=== PATIENT | female | born 1955 | race Caucasian/White ===

== ENCOUNTER 2016-09-07 22:27 | Inpatient (IN) | payer MEDICAID, MEDICARE ==
[~2016-09-07] VITALS: Ht 157.5 cm; Wt 102.6 kg
[~2016-09-07 22:27] MED LIST: CARV12.52 PO; CARV6.252 PO; CIPR-231 PO; CLIN-78 PO; CLOP75TA28 PO; FURO40TA4 PO; INSLIS SUBQ; NPH,100V11 SUBQ; ONDA4TAB6 PO; POTA10TA14 PO; SERT100T9 PO; SIMV40TA5 PO; TOPI50TA32 PO
[2016-09-07 23:30] VITALS: BP 146/83; PULSE 104; RESP 16; O2SAT 99
[2016-09-08] VITALS (8 sets, daily range): BP systolic 117–160; BP diastolic 59–93; PULSE 72–110; RESP 18–20; O2SAT 93–97
--- NOTE | 2016-09-08 01:29 | ED.REPORT ---
HPI-Extremity Problem Lower Date of Service Sep 08, 2016 ED Provider: Tory Dillard MD Patient is a 61 year old female with a history of diabetes mellitus with peripheral neuropathy, congestive heart failure, coronary artery disease, fibromyalgia, hypertension, and prior CVA who presents to the ED complaining of left foot swelling and pain that began 3-4 days ago. Patient states that the pain in her foot has increased in severity since onset and now radiates up her entire leg. She has also noticed that her foot is red. The patient is concerned that she has a fracture or infection in her foot. Patient reports that the pain of her foot causes her foot to buckle under her and is unable to bear weight on her foot. Patient denies any recent trauma or injury to her foot. Patient reports that any exertion also makes her short of breath. She also reports that her blood sugars have been uncontrollably high. Patient admits to associated chills and a fever of 102F at home, but she is afebrile in the ED. She reports left arm pain but denies chest pain. Nursing Notes Stated Complaint: SWOLLEN FOOT/ANKLE Chief Complaint: Extremity Trauma Nursing Notes Reviewed: Yes Allergies: Coded Allergies: codeine (Verified Allergy, Severe, 12/19/14) Penicillins (Verified Allergy, Mild, 12/19/14) BUT TOLERATES AMOX (ACCORDING TO CHART) hydrocodone bitartrate (Verified Allergy, Mild, 12/19/14) hydromorphone (Verified Allergy, Mild, 12/19/14) oxycodone (Verified Allergy, Mild, 12/19/14) Sulfa (Sulfonamide Antibiotics) (Verified Allergy, Unknown, 12/19/14) gabapentin (Verified Adverse Reaction, Intermediate, Nausea,Vomiting, 12/19) Scheduled Carvedilol (Carvedilol) 6.25 Mg Tablet 6.25 MG PO QAM Carvedilol (Carvedilol) 12.5 Mg Tablet 12.5 MG PO QPM Ciprofloxacin (Cipro) 500 Mg Tablet 500 MG PO BID Clindamycin (Clindamycin) 300 Mg Capsule 300 MG PO Q8H Clopidogrel (Clopidogrel) 75 Mg Tablet 75 MG PO DAILY Furosemide (Furosemide) 40 Mg Tablet 80 MG PO QAM Furosemide (Furosemide) 40 Mg Tablet 40 MG PO QPM Insulin Human Lispro (HumaLOG U100 Insulin Vial) 100 Unit/Ml Unit 1 UNIT SUBQ ACHS Check blood sugars before meals and at bedtime. Use correction factor only before meals. Blood Sugar Lispro Correction: <151, 0 units; 151-175, 1 unit; 176-200, 2 units; 201-225, 3 units; 226-250, 4 units; 251-275, 5 units; 276-300 , 6 units; 301-325, 7 units; 326-350, 8 units; 351-375, 9 units; 376-400, 10 units; >400, 12 units. NPH, Human Insulin Isophane (HUMulin-N U100 Insulin Vial) 100 Unit/1 Ml Vial 30 UNIT SUBQ BID Potassium Chloride ER (Klor-Con M10) 10 Meq Tablet 20 MEQ PO BID Sertraline HCl (Sertraline) 100 Mg Tablet 100 MG PO DAILY Simvastatin (Simvastatin) 40 Mg Tablet 40 MG PO HS Topiramate (Topamax) 50 Mg Tablet 50 MG PO BID Scheduled PRN Ondansetron (Zofran) 4 Mg Tablet 4 MG PO Q4H PRN PRN For Nausea General Time Seen by MD: 01:27 Chief Complaint Foot injury left Hx Obtained From: Patient Arrived By: Wheelchair Onset Occurred: 4 days ago Symptom Duration: Since onset Location: : Foot left Quality: Painful Severity: Current: Severe Severity: Maximum: Severe Recent Healthcare: No recent doctor visit, No recent hospitalization Similar Sx Previous: No Past Medical History Past Medical History 1. Diabetes mellitus type 2, insulin using a. Diabetic neuropathy and retinopathy. b. Peripheral neuropathy. c. Suspected nephropathy. 2. Congestive heart failure, systolic dysfunction with most recently echocardiogram showing reduced EF of about 40% to 45% with mild global hypokinesis of left ventricle, severe hypokinesis of the inferior wall, right ventricle being normal in size and function. 3. History of previous CVA in November 24 which showed subacute lacunar infarct of the left caudate body in the left camejo radiata. 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 She has carotids which showed less than 50% bilateral stenosis of the internal carotids. 4. Depression. 5. Gout. 6. Hyperlipidemia. 7. Hypertension. 8. Sleep apnea. Patient now wearing CPAP at night. 9. Obesity. 10. History of osteoarthritis. 11. Fibromyalgia Neuropathy Past Surgical History 1. Total abdominal hysterectomy and bilateral salpingo-oophorectomy. 2. Cholecystectomy. 3. Heart catheterization procedure. 4. Tonsillectomy. 5. Left thumb debridement due to Staph infection. Smoking History Never Smoker Social History Other Social History: Good social support, Local resident Ambulatory Status Independent Review of Systems Constitutional: Reports: Chills, Fever Musculoskeletal: Reports: Extremity pain, Extremity swelling Complete sys rev & neg: except as marked. Respiratory: Reports: Dyspnea on exertion, Shortness of breath Cardiovascular: Denies: Chest pain Physical Exam Initial Vital Signs Vital Signs (First) Date Time Temp Pulse Resp B/P Pulse Ox O2 Delivery O2 Flow Rate FiO2 09/07/16 23:30 36.8 104 16 146/83 99 Room Air Initial VS: Reviewed Head / Eyes: Atraumatic, Normocephalic, PERRL ENT: Conjunctiva normal, No scleral icterus Neck: Supple, Full range of motion Psychiatric: Mood/affect normal, Behavior normal, Normal thought content Lower Extremity / Pelvis / MS: No deformity Left Leg / Calf: Positive: L calf > R calf, Swelling present... Ankle / Foot: No deformity Left ankle/foot: Very slight erythema and 1+ edema of the foot. Foot is tender to touch. No crepitus. Decreased ROM of the ankle secondary to pain. Good pulse. General/Constitutional: Awake, Alert Appearance / Presentation: Positive: Ill appearing/not toxic (chronically), Obese, morbidly Respiratory / Chest: Breath sounds NL, Breath sounds = bilat, No respiratory distress, No rales, No rhonchi, No wheezing Cardiovascular: Regular rhythm, Heart sounds NL, No murmurs Heart Rate / Rhythm: Positive: Tachycardia Skin: Warm, Dry Neurologic: Oriented X3, Speech NL, No motor deficits, No sensory deficits Interpretation & Diagnostics Lab Results Interpretation Result Diagram: 09/08/16 0125 09/08/16 0125 Test 09/08/16 01:25 White Blood Count 13.9th/mm3 (3.8-10.1) Red Blood Count 4.84mil/mm3 (3.90-5.20) Hemoglobin 12.8g/dL (12.0-15.6) Hematocrit 40.6% (35.0-46.0) Mean Corpuscular Volume 83.9fL (81-100) Mean Corpuscular Hemoglobin 26.4pg (27.0-35.0) Mean Corpuscular Hemoglobin Concent 31.5% (32.0-37.0) Red Cell Distribution Width 16.2% (12.3-15.4) Platelet Count 223bil/L (150-400) Neutrophils (%) (Auto) 77.8% (40-74) Lymphocytes (%) (Auto) 13.0% (14-46) Monocytes (%) (Auto) 7.9% (4-12) Eosinophils (%) (Auto) 0.9% (0-5) Basophils (%) (Auto) 0.2% (0-3) Prothrombin Time 12.8sec (8.1-12.5) Prothromb Time International Ratio 1.19ratio D-Dimer 0.6mg/L (<0.50) Sodium Level 142mEq/L (134-144) Potassium Level 4.2mEq/L (3.5-5.2) Chloride Level 103mEq/L (97-108) Carbon Dioxide Level 24mmol/L (18-29) Blood Urea Nitrogen 32mg/dL (8-27) Creatinine 0.96mg/dL (0.57-1.00) Estimat Glomerular Filtration Rate 85mL/min (>59) Glucose Level 166mg/dL (60-99) Lactic Acid Level 1.3mmol/L (0.4-2.0) Calcium Level 9.2mg/dL (8.5-10.1) Magnesium Level 1.7mg/dL (1.6-2.6) Total Bilirubin 0.6mg/dL (0.0-1.2) Aspartate Amino Transf (AST/SGOT) 17U/L (0-50) Alanine Aminotransferase (ALT/SGPT) 14U/L (0-32) Alkaline Phosphatase 68U/L (25-165) Troponin T 0.013ug/L (0.0-0.011) Pro-B-Type Natriuretic Peptide 934.7pg/mL (0-287) Total Protein 7.6g/dL (6.4-8.4) Albumin 3.8g/dL (3.4-5.0) Hold Mendes Top Tube Received (Received) ECG Interpretation ECG Interpretation: Sinus tachycardia, Rate [address] elevations. Low voltage. Diffuse flattening of T waves, unchanged from prior. Time: 02:47 Interpreted by: ED physician Normal ECG Interpretation: No change from prior ECGs X-Ray Chest Interpretation Chest Xray Interpretation: Impression: Cardiomegaly. No acute cardiopulmonary process. View: Portable Interpretation / Wet Read by: Wet read ED physician X-Ray Interpretation Xray Interpretation: Impression: No acute abnormalities. X-Ray Ordered: Foot left Interpretation / Wet Read by: Wet read ED physician Re-Eval/Medical Decision Med Decision/Clinical Course 61-year-old female with extensive past medical history here with shortness of breath and redness, pain, swelling to her left lower extremity. Differential diagnosis includes but is not limited to cellulitis versus DVT versus PE versus CHF exacerbation. BNP is very mildly elevated, along with very mildly elevated troponin, which does not appear to be her baseline. EKG did not show ST elevation [place]. Patient was given aspirin in the emergency department, along with therapeutic Lovenox. CTA PE study is still pending at time of admission. Hospitalist is aware of need for follow-up of CTA. CMP is otherwise unremarkable. CBC shows leukocytosis. Likely secondary to her cellulitis. Patient has been given clindamycin as she is allergic to penicillins. Blood cultures have been drawn. She is aware and amenable to admission at this time. I offered her pain medications, however, given all of her allergies, she declined. Source of Hx: Old records Re-Evaluation/Progress #1: Time of Eval: 02:31 Patient Status: Condition improved Re-Evaluation/Progress Note: Patient was informed that she will be admitted to the hospital for further care. Patient understands and agrees with this plan. Patient has an allergy to opiates. The patient does not remeber what this reaction is. Re-Evaluation/Progress #2: Time of Eval: 02:39 Re-Evaluation/Progress Note: Patient was informed that she has a mildly elevated troponin. This in combination with a mildly elevated d-dimer indicated a CT Angio of her chest. Consultation : Referral / Consult Name: Leeanna Horvath MD Consulted With: Hospitalist Call Returned at: 02:32 Nurse Case Manager: Will see patient, Agrees with eval, Agrees with plan, Accepts admit Note: Spoke with Dr Horvath, hospitalist, who agrees to accept admit. Counseled Regarding: Diagnosis, Lab results, Need for admission Discharge & Departure Impression: Primary Impression: Cellulitis of left foot Additional Impression: Elevated troponin Disposition: ADMITTED TO HOSPITAL Discharge Condition All VS Reviewed: Yes Condition: Stable Referrals: Harris Landin MD (PCP) [place] Attestation Portions of this note were transcribed by Leona Blanca. I, Dr. Dillard personally performed the history, physical exam and medical decision-making; I reviewed and confirmed the accuracy of the information in the transcribed note. Signed by: Arvind Guerra, 09/08/2016 0247 copies to: Harris Landin MD, Rebecca A MD Sep 08, 2016 01:28 Leona Blanca Sep 08, 2016 01:38
[2016-09-08 01:46] LABS: BASOPHILS % (AUTO) 0.2 % (0-3); EOSINOPHILS % (AUTO) 0.9 % (0-5); MONOCYTES % (AUTO) 7.9 % (4-12); Mean Corpuscular Hemoglobin 26.4 pg (27.0-35.0); Mean Corpuscular Volume 83.9 fL (81-100); NEUTROPHILS % (AUTO) 77.8 % (40-74); Platelet Count 223 bil/L (150-400)
[2016-09-08 02:31] LABS: Magnesium 1.7 mg/dL (1.6-2.6); TROPONIN T 0.013 ug/L (0.0-0.011)
[2016-09-08 02:49] LABS: INR 1.19 ratio
[2016-09-08] MEDS ORDERED: Ondansetron 2 mg/mL 2 mL Inj IVPUSH PRN ×2 (03:20→03:30)
[2016-09-08] MEDS ORDERED: Heparin 5,000 Unit/mL Inj SUBQ SCH (03:20)
[2016-09-08] MEDS ORDERED: Polyethylene Glycol (PEG) 17 Gm Powder PO PRN (03:20)
[2016-09-08] MEDS ORDERED: Alum-Mag Hydrox-Simeth 30 mL Suspension PO PRN ×2 (03:20→03:30)
[2016-09-08] MEDS ORDERED: Clindamycin Inj 900 MG in IV Premix 1 EACH IV ONE (03:35)
[2016-09-08] MEDS ORDERED: Vancomycin Inj 2,000 MG in 0.9% Sodium Chloride 500 ML IV ONE (04:00)
[2016-09-08] MEDS: Clindamycin Inj 600 MG in IV Premix 1 EACH IV SCH ×3 (04:57→20:40)
[2016-09-08] MEDS: Nystatin 100,000 Unit/Gm 15 Gm Powder TOPICAL SCH ×3 (04:57→20:40)
[2016-09-08 05:56] LABS: APPEARANCE,URINE HAZY (CLEAR,HAZY); COLOR,URINE YELLOW (YELLOW); OCCULT BLOOD,URINE SMALL (NEGATIVE); PH,URINE 5.5 (5.0-8.0)
--- NOTE | 2016-09-08 06:26 | PCM.CONPHA ---
Subjective Date of Service: Sep 08, 2016 Requesting Provider: Minesh Kim DO Reason for Pharmacy Consult: Vancomycin Dosing Objective Vital Signs Date Time Temp Pulse Resp B/P Pulse Ox O2 Delivery O2 Flow Rate FiO2 09/08/16 06:18 103 09/08/16 04:00 36.7 110 20 160/93 97 Room Air 09/08/16 03:35 37.2 105 20 147/59 95 Room Air 09/07/16 23:30 36.8 104 16 146/83 99 Room Air Weight (Kilograms): 104.000 Height (Feet): 5 Height (Inches): 2.00 Test 09/08/16 01:25 09/08/16 04:53 White Blood Count 13.9th/mm3 (3.8-10.1) Red Blood Count 4.84mil/mm3 (3.90-5.20) Hemoglobin 12.8g/dL (12.0-15.6) Hematocrit 40.6% (35.0-46.0) Mean Corpuscular Volume 83.9fL (81-100) Mean Corpuscular Hemoglobin 26.4pg (27.0-35.0) Mean Corpuscular Hemoglobin Concent 31.5% (32.0-37.0) Red Cell Distribution Width 16.2% (12.3-15.4) Platelet Count 223bil/L (150-400) Neutrophils (%) (Auto) 77.8% (40-74) Lymphocytes (%) (Auto) 13.0% (14-46) Monocytes (%) (Auto) 7.9% (4-12) Eosinophils (%) (Auto) 0.9% (0-5) Basophils (%) (Auto) 0.2% (0-3) Prothrombin Time 12.8sec (8.1-12.5) Prothromb Time International Ratio 1.19ratio D-Dimer 0.6mg/L (<0.50) Sodium Level 142mEq/L (134-144) Potassium Level 4.2mEq/L (3.5-5.2) Chloride Level 103mEq/L (97-108) Carbon Dioxide Level 24mmol/L (18-29) Blood Urea Nitrogen 32mg/dL (8-27) Creatinine 0.96mg/dL (0.57-1.00) Estimat Glomerular Filtration Rate 85mL/min (>59) Glucose Level 166mg/dL (60-99) Lactic Acid Level 1.3mmol/L (0.4-2.0) Calcium Level 9.2mg/dL (8.5-10.1) Magnesium Level 1.7mg/dL (1.6-2.6) Total Bilirubin 0.6mg/dL (0.0-1.2) Aspartate Amino Transf (AST/SGOT) 17U/L (0-50) Alanine Aminotransferase (ALT/SGPT) 14U/L (0-32) Alkaline Phosphatase 68U/L (25-165) Troponin T 0.013ug/L (0.0-0.011) Pro-B-Type Natriuretic Peptide 934.7pg/mL (0-287) Total Protein 7.6g/dL (6.4-8.4) Albumin 3.8g/dL (3.4-5.0) Hold Mendes Top Tube Received (Received) Urine Color Yellow (YELLOW) Urine Appearance Hazy (CLEAR,HAZY) Urine pH 5.5 (5.0-8.0) Urine Specific [place] 1.015 (1.003-1.035) Urine Protein 100mg/dL (NEG,TRACE) Urine Glucose (UA) Negativemg/dL (NEGATIVE) Urine Ketones Negativemg/dL (NEGATIVE) Urine Occult Blood Small (NEGATIVE) Urine Nitrite Negative (NEGATIVE) Urine Bilirubin Negative (NEGATIVE) Urine Urobilinogen 1.0mg/dL (NORMAL) Urine Leukocyte Esterase Trace (NEGATIVE) Urine RBC 0-2/hpf (0-2) Urine WBC 6-10/hpf (0-5) Urine Epithelial Cells Few/hpf (NONE-MOD) Urine Crystals None seen (NONE SEEN) Urine Bacteria Few/hpf (NONE-FEW) Urine Hyaline Casts None/lpf (NONE) Urine Granular Casts None seen (NONE SEEN) Urine Waxy Casts None seen (NONE SEEN) Urine Red Blood Cell Casts None seen (NONE SEEN) Urine White Blood Cell Casts None seen (NONE SEEN) Urine Mucus None seen (None Seen) Urine Trichomonas None seen (NONE SEEN) Urine Yeast None (NONE SEEN) Urinalysis Comment None Urine Culture Reflexed Indicated Assessment/Plan Assessment/Plan A: * Vancomycin dosing by pharmacy for 61 y/o diabetic woman * She is also being started on clindamycin * Estimated CrCl 71 mL/min (Cockcroft & Gault using AdjBW) * Estimated vancomycin half-life is 11 hours and estimated Vd is 73 liters P: * Give one 2000 mg vancomycin IV loading dose * Continue with vancomycin 1250 mg every 12 hours * Target trough range of 15 - 20 mcg/mL for now * Drawing a trough level prior to the fourth dose Thank you. Pharmacy will continue to follow this patient. Vivian Alvarado, PharmD Vivian Alvarado Sep 08, 2016 06:26
--- NOTE | 2016-09-08 06:27 | NUR ---
Admit Admitted to 1028 from ED. Unable to ambulate on arrival r/t left foot pain with activity. Right AC IV SL. IV ABO initiated after blood cultures and UA obtained. RA without c/o SOB. Tele SR/ST HR 90-110s without c/o CP. Tolerating PO intake without difficulty but reports poor appetite at baseline. Toileting per bedpan at this time per patient request. Denies issues with toileting with exception to three episodes of diarrhea prior to admit. c/o left foot pain. Prn ibuprofen administered and effective at this time. Personal belongings at bedside per patient request. Unable to recall home medications and did not bring in home medication list. Oriented to call light use with return demonstration and using for needs.
[2016-09-08] MEDS ORDERED: Glucose 40% Oral Gel 15 Gm Tube PO PRN (06:35)
--- NOTE | 2016-09-08 06:40 | PCM.HPMED ---
Subjective Date of Service Sep 08, 2016 Primary Provider: Admitting Physician: Leeanna Horvath MD Primary Care Physician: Harris Landin MD Attending Physician: Leeanna Horvath MD Chief Complaint: Foot pain History of Present Illness: Patient is a pleasant 61-year-old woman history of DM type II peripheral neuropathy, insulin using, congestive heart failure, coronary artery disease, fibromyalgia, hypertension, and history of stroke presented to the emergency department complaining of left foot swelling and pain that began about 3-1/2 days ago. She states the pain in her foot increased in severity since onset now radiates up her entire left leg, she is also noticing that her foot is red. Additionally she says that her right foot is also beginning to cause her some pain as well. She had this previously which required hospitalization with IV antibiotics. She was concerned that she had fractured her foot or that it was once again infected. She states she is unable to bear weight on her foot and subsequently unable to walk. She denies any recent trauma or injury to her foot. The pain occasionally radiates up her leg into her back, and also describes left upper extremity pain into her shoulder and believes it all to be connected. She rates the pain 10 out of 10 and says she does not believe the pain can be any worse than it is now met is the worst pain in her entire life and could cause her to pass out. She describes the pain as throbbing and stinging. Additionally patient conveys that she has begun to notice increasing dyspnea on exertion, and her blood sugars have been uncontrollably high since the pain in her foot has started. She reports that she has had a fever at home of 100.2 the last couple of nights, associated with chills, no cold sweats, but remained afebrile in the emergency department. She has had lightheadedness and dizziness for the last month, worsening in the last couple of days, and states this is one of the reasons she decided to come to the ER was because of the worsening lightheadedness dizziness, now with worsening left lower extremity pain, pain on the right foot, inability to maintain adequate blood sugar, and concern for kidney infection given the back pain. She also endorses polyuria, polydipsia, a single watery diarrhea since being in the emergency department, In the emergency department she was found to have heart rate of 104, blood pressure 146/83, respiratory rate of 16, temperature 36.8, and O2 saturation 99 % on room air. White blood cell count of 13.9, 77.8% neutrophils, hemoglobin 12.8, platelets 223. Electrolytes were within normal limits, BUN was 32, creatinine 0.96, blood glucose was 166, liver enzymes were normal, magnesium 1.7, lactic acid 1.3, BNP 937, troponin was 0.013 PT 12.8, INR 1.19, d-dimer 0.6. EKG: Heart rate 105, sinus tachycardia, QTC 472, no signs of acute ischemia or infarction, beginning of left axis deviation. Due to the shortness of breath, and elevated d-dimer, patient received chest angio-pulmonary embolism series This is read as negative for pulmonary embolism. Chest x-ray is interpreted as having cardiomegaly, no acute cardiopulmonary process as read by the emergency room physician. Left foot and ankle was read by the emergency room physician as having no acute abnormalities. Review of Systems: Comprehensive ROS is negative unless specified in history of present illness Allergies Coded Allergies: codeine (Verified Allergy, Severe, 12/19/14) Penicillins (Verified Allergy, Mild, 12/19/14) BUT TOLERATES AMOX (ACCORDING TO CHART) hydrocodone bitartrate (Verified Allergy, Mild, 12/19/14) hydromorphone (Verified Allergy, Mild, 12/19/14) oxycodone (Verified Allergy, Mild, 12/19/14) Sulfa (Sulfonamide Antibiotics) (Verified Allergy, Unknown, 12/19/14) gabapentin (Verified Adverse Reaction, Intermediate, Nausea,Vomiting, 12/19) Home Medications Scheduled Carvedilol (Carvedilol) 6.25 Mg Tablet 6.25 MG PO QAM Carvedilol (Carvedilol) 12.5 Mg Tablet 12.5 MG PO QPM Ciprofloxacin (Cipro) 500 Mg Tablet 500 MG PO BID Clindamycin (Clindamycin) 300 Mg Capsule 300 MG PO Q8H Clopidogrel (Clopidogrel) 75 Mg Tablet 75 MG PO DAILY Furosemide (Furosemide) 40 Mg Tablet 80 MG PO QAM Furosemide (Furosemide) 40 Mg Tablet 40 MG PO QPM Insulin Human Lispro (HumaLOG U100 Insulin Vial) 100 Unit/Ml Unit 1 UNIT SUBQ ACHS Check blood sugars before meals and at bedtime. Use correction factor only before meals. Blood Sugar Lispro Correction: <151, 0 units; 151-175, 1 unit; 176-200, 2 units; 201-225, 3 units; 226-250, 4 units; 251-275, 5 units; 276-300 , 6 units; 301-325, 7 units; 326-350, 8 units; 351-375, 9 units; 376-400, 10 units; >400, 12 units. NPH, Human Insulin Isophane (HUMulin-N U100 Insulin Vial) 100 Unit/1 Ml Vial 30 UNIT SUBQ BID Potassium Chloride ER (Klor-Con M10) 10 Meq Tablet 20 MEQ PO BID Sertraline HCl (Sertraline) 100 Mg Tablet 100 MG PO DAILY Simvastatin (Simvastatin) 40 Mg Tablet 40 MG PO HS Topiramate (Topamax) 50 Mg Tablet 50 MG PO BID Scheduled PRN Ondansetron (Zofran) 4 Mg Tablet 4 MG PO Q4H PRN PRN For Nausea PMH Past Medical History Past Medical History 1. Diabetes mellitus type 2, insulin using a. Diabetic neuropathy and retinopathy. b. Peripheral neuropathy. c. Suspected nephropathy. 2. Congestive heart failure, systolic dysfunction with most recently echocardiogram showing reduced EF of about 40% to 45% with mild global hypokinesis of left ventricle, severe hypokinesis of the inferior wall, right ventricle being normal in size and function. 3. History of previous CVA in November 24 which showed subacute lacunar infarct of the left caudate body in the left camejo radiata. 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 She has carotids which showed less than 50% bilateral stenosis of the internal carotids. 4. Depression. 5. Gout. 6. Hyperlipidemia. 7. Hypertension. 8. Sleep apnea. Patient now wearing CPAP at night. 9. Obesity. 10. History of osteoarthritis. 11. Fibromyalgia Neuropathy Surgical History 1. Total abdominal hysterectomy and bilateral salpingo-oophorectomy. 2. Cholecystectomy. 3. Heart catheterization procedure. 4. Tonsillectomy. 5. Left thumb debridement due to Staph infection. Family History Mother has COPD requiring oxygen Father " from natural causes" Daughter "has a kidney problem" Social History Hx Alcohol Use: No Hx Substance Use: No Hx Tobacco Use: No Smoking Status: Never Smoker Living Arrangement: with Family Exam Vital Signs Vital Sign - Last Date Time Temp Pulse Resp B/P Pulse Ox O2 Delivery O2 Flow Rate FiO2 09/08/16 03:35 37.2 105 20 147/59 95 Room Air Exam General: Laying in bed, in mild distress HEENT: Normocephalic, atraumatic, EOMI grossly, mucous membranes dry, hirsute chin, rather large fullness of the anterior neck, foul-smelling breath Cardiovascular: Regular rate and rhythm, heart sounds were distant and difficult to appreciate, unable to specify murmur, clicks, or rubs. Pulmonary: Clear to auscultation bilaterally, no W/R/R. Abdominal: Obese. there is firmness adjacent to the umbilicus about avocado size subcutaneous tissue, nontender, there is a full-length midline sagittal surgical scar, there is moist red/pink foul-smelling rash at the abdominal folds along the inguinal ligaments. Extremities/skin: Left lower extremity as faint redness to the foot and ankle, it is exquisitely tender to any manipulation, unable to appreciate any crepitus , fluctuance, cords, or ulcers. Leg is tender all the way to the knee. Right lower extremity is similar, however not as tender, swollen, or red/pink. The soles of both feet are crusted with black dirt. Unable to appreciate any breaks in skin. Neuro: Neurologically grossly intact, strength is equal bilaterally upper and lower extremities. Strength of lower extremities is limited by pain. MSK: Upper extremity strength is 5 out of 5 in all 6 planes, lower extremity strength is 3 out of 5, unable to be evaluated against resistance due to pain. Lab and Diagnostics Result Diagram: 09/08/16 0125 09/08/16 0125 Microbiology Blood cultures and urine pending. X-Rays, CTs and MRIs X-Ray Chest Interpretation Chest Xray Interpretation: Impression: Cardiomegaly. No acute cardiopulmonary process. View: Portable Interpretation / Wet Read by: Wet read ED physician X-Ray Interpretation Xray Interpretation: Impression: No acute abnormalities. X-Ray Ordered: Foot left Interpretation / Wet Read by: Wet read ED physician Night read of chest angiogram was negative for pulmonary embolism 12-lead ECG Please see history of present illness Assessment & Plan 61-year-old woman with history of diabetes mellitus, insulin using, peripheral neuropathy, congestive heart failure, coronary artery disease, at least one CVA , and history of cellulitis in her feet requiring IV antibiotics presented with similar pain before that required antibiotics. Presentation is concerning for cellulitis versus DVT, and history of shortness of breath and elevated d-dimer raise suspicion for pulmonary embolism. #1 Acute Sepsis, present on admission, treatment initiated Heart rate 104, white blood cell count 13.9 with left shift, with source of left lower extremity cellulitis, and possible urinary tract infection. Lactic acid 1.3 Patient's blood pressure is stable, however remains tachycardic. IV normal saline to tachycardia subsides. Antibiotics as below #2 Acute BL lower extremity pain, L>R , present on admission, evaluation and treatment ongoing -Elevated d-dimer, swelling, redness consistent with DVT, history of cellulitis requiring IV antibiotics with similar presentation, at this point pain can be attributed to either as both are likely. -Bilateral duplex venous ultrasound to be performed morning. IV antibiotics clindamycin 600 mg 3 times a day and vancomycin dosed per pharmacy CRP pending LRINEC score is pending CRP - (if crp is >150 score will be 6, otherwise only 2) Lovenox dosed pharmacy #3 acutely Elevated troponin, present on admission, evaluation ongoing to rule out NSTEMI. Troponin mildly elevated at 0.013, this is elevated from baseline on previous records, EKG did not demonstrate any acute changes suggesting ischemia or infarction. Given her state of stress, tachycardia, as may be demand ischemia. Trend troponins every 4 hours Stat EKG with any chest pain, shortness of breath, change in mental status. IV fluids as above for tachycardia If troponins elevate will initiate NSTEMI protocols and treatment. Continue home simvastatin #4 Chronic congestive heart failure, present on admission, status unknown. Respiratory rate has been 20 while in the ER and since hospitalization. This in addition to her stated complaint dyspnea on exertion Lung burrows were clear on exam, however concerned that dyspnea on exertion maybe represent worsening congestive heart failure or onset of cor pulmonale. Echocardiogram from outpatient record from 2011 showed improved ejection fraction from 55-60% however stated that there was right ventricular hypertrophy , mitral and aortic calcifications. Continue home furosemide, carvedilol, #5 Uncontrolled diabetes mellitus type II insulin using, present on admission, treatment initiated. Blood glucose was 166, reviewed his short record shows a psychiatrist about every time she has been in the hospital, most recent A1c of the findings on her outpatient record from November 2015 and was 11.7 Outpatient record reflects 40 units Novolin twice a day, 20 units of NovoLog with every meal. We will start patient on 40 units basal insulin twice a day, but high-dose correctional scale. Obtained A more recent A1c Diabetes education while inpatient #6 reconcile home medications. VTE Prophylaxis: Lovenox. Dosed per pharm. GI prophylaxis: Not indicated Pain management: Due to numerous allergies, patient can only receive NSAIDs, which she says does help "takes the edge off" 600 mg every 4 hours ibuprofen Pain Evaluation: Pain not Controlled GI Prophylaxis: Not indicated VTE Prophylaxis: Sub-Q Enoxaparin Resuscitation Status: CPR: Attempt Resuscitation Attending Statement Pt seen and examined by myself and agree with above plan. Minesh Kim DO Sep 08, 2016 04:01 Leeanna Horvath MD Sep 11, 2016 14:18
[2016-09-08] MEDS: 0.9% Sodium Chloride 1,000 ML IV SCH ×2 (07:35→16:05)
[2016-09-08 07:49] LABS: BASOPHILS % (AUTO) 0.2 % (0-3); EOSINOPHILS % (AUTO) 1.2 % (0-5); MONOCYTES % (AUTO) 6.8 % (4-12); Mean Corpuscular Volume 84.3 fL (81-100); NEUTROPHILS % (AUTO) 68.6 % (40-74); Platelet Count 200 bil/L (150-400)
--- NOTE | 2016-09-08 08:43 | NUR ---
Med rec Olivia Obrien, admit nurse, phoned. Will do med rec this am.
[2016-09-08] MEDS ORDERED: NPH,100V10 SUBQ (09:33)
[2016-09-08] MEDS ORDERED: INSU100C8 SUBQ (09:33)
[2016-09-08] MEDS: Insulin GLARgine 100 Unit/mL Syringe SUBQ SCH ×3 (09:39→22:25)
[2016-09-08] MEDS: Insulin Human REGular 300 Unit/3 mL Inj SUBQ SCH ×2 (09:40→14:30)
[2016-09-08] MEDS: Insulin LISPRO 300 Unit/3 mL Inj SUBQ SCH ×4 (09:40→22:25)
[2016-09-08] MEDS: Vancomycin Dose per Pharmacist XX SCH (09:41)
--- NOTE | 2016-09-08 09:42 | NUR ---
Insulin Held pending clarification. Admit RN working on medrec, waiting for med info from pharmacy. Will page MD when med rec is updated and accurate.
--- NOTE | 2016-09-08 09:53 | DRSVH ---
PROCEDURE: X-RAY LEFT ANKLE, MINIMUM THREE VIEWS ([id number]) INDICATIONS: IDIOPATHIC LEFT ANKLE PAIN AND SWELLING TECHNIQUE: 3 views of the ankle were acquired. COMPARISON: None. FINDINGS: Bones: No fractures or dislocations. Ankle mortise is normally aligned. No suspicious bony lesions . Prominent plantar cutaneous lesion 5. Soft tissues: No tibiotalar joint effusion. Achilles tendon appears normal. Vascular calcification s indicate atherosclerosis. IMPRESSION: No displaced fracture seen. If there is continued pain, followup exam or additional lawrence ging such as MRI or CT could be performed for further assessment. Dictated by: Jose Vernon [facility] Interpreted: Cuca Cespedes MD on 09/08/2016 at 9:53 Transcribed by: LUPE on 09/08/2016 at 9:53 Approved by: Cuca Cespedes M.D. on 09/08/2016 at 21:14
--- NOTE | 2016-09-08 09:54 | DRSVH ---
PROCEDURE: X-RAY CHEST ONE VIEW, PORTABLE ([id number]) INDICATIONS: shortenss of breath TECHNIQUE: One view of the chest was acquired. COMPARISON: [facility], CR, XR CHEST 2VW, 08/13/2015, 14:54. [facility], CT, CT ANGIO CHEST PE, 09/08/2016, 3:02. [facility], CR, CHEST 1VW (PORTABLE), 02/16/2013, 21 :37. FINDINGS: Surgical changes and devices: None. Lungs and pleura: No pleural effusions or pneumothorax. Lungs are clear. Mediastinum: Mediastinal contours appear normal. Heart size is normal. Bones and chest wall: No suspicious bony lesions. Overlying soft tissues appear unremarkable. IMPRESSION: No acute cardiopulmonary disease. Dictated by: Jose HELM Interpreted: Cuca Cespedes MD on 09/08/2016 at 9:53 Transcribed by: LUPE on 09/08/2016 at 9:54 Approved by: Cuca Cespedes M.D. on 09/08/2016 at 21:14
[2016-09-08] MEDS ORDERED: CARV25TA2 PO (09:56)
[2016-09-08] MEDS ORDERED: FRSM80T PO ×2 (09:56)
[2016-09-08] MEDS ORDERED: FLUT12AE8 IH (09:56)
--- NOTE | 2016-09-08 10:00 | DRSVH ---
PROCEDURE: CT ANGIO CHEST PULMONARY EMBOLISM ([id number]) INDICATIONS: shortness of breath TECHNIQUE: After the administration of intravenous contrast, 2 mm thick sections acquired from the pulmonary api lore to the posterior costophrenic angles. 3-dimensional maximum intensity projection (MIP) coronal a nd sagittal reformats were then acquired through the thorax. For radiation dose reduction, the follo wing was used: automated exposure control, adjustment of mA and/or kV according to patient size. COMPARISON: None. FINDINGS: Image quality: Excellent. Pulmonary arteries: Pulmonary arteries are normal in size, and demonstrate no intraluminal filling d efects to suggest central pulmonary embolism. Lungs and pleura: Lungs are clear. No pleural effusions or pneumothorax. Central and peripheral ai rways are patent. Mediastinum: Heart size is normal, without pericardial effusion. No mediastinal or hilar adenopathy . Thoracic aorta is normal in caliber and enhancement. Esophagus is normal in caliber, without hiat al hernia. Bones and chest wall: No suspicious bony lesions. Ribs and thoracic spine appear intact throughout. Thyroid gland contains a large 4.0 x 3.5 cm nodule in the right lobe.. No axillary or supraclavicu lar adenopathy. Abdomen: Gallbladder is surgically absent. Visualized upper abdominal solid organs appear normal in the early arterial phase of enhancement. IMPRESSION: 1. No pulmonary embolus. 2. Large nodule in the right lobe of the thyroid gland. Recommend thyroid ultrasound for further eval uation. Dictated by: Maria Victoria Cardoza MD, PhD on 09/08/2016 at 9:54 Approved by: Maria Victoria Cardoza MD, PhD on 09/08/2016 at 9:58
--- NOTE | 2016-09-08 14:34 | DRSVH ---
[facility] [address] [place] [address] Echocardiogram Report Name: COSME HURST LStudy Date: 09/08/2016 Height: 62 in Hospital Exam Location: [facility] Weight: 229 lb Gender: Female BSA: 2.0 m2 : 1955 Age: 61 yrs BP: 160/93 mmHg Reason For Study: Congestive Heart Failure History: CAD, HTN, SLEEP APNEA Ordering Physician: Performed By: Akosua Camacho Referring Physician: Ady Nichole Interpretation Summary The left ventricle is borderline dilated. Left ventricular wall thickness is mildly increased. Left ventricular systolic function is moderately reduced. The ejection fraction is estimated to be 30-35%. Compared to the prior exam, left ventricular function is moderately decreased. There is moderate global hypokinesis of the left ventricle. Assessment of diastolic parameters suggests a pseudonormalization pattern, consistent with elevated filling pressures. The right ventricle is normal in size and function. The right ventricular systolic pressure is estimated at 36 mmHg assuming a right atrial pressure of 8 mm Hg. The left atrium is moderately dilated. Right atrial size is normal. There is no significant valvular heart disease. The ascending aorta is mildly enlarged. Procedure: A two-dimensional transthoracic echocardiogram with color flow and Doppler was performed. The study quality was technically adequate. Comparison is made with the echocardiogram of 04/12/2012 and 11/25/2011. A contrast injection of Definity was performed to improve assessment of LV function. The patient was in normal sinus rhythm during the exam. Left Ventricle: The left ventricle is borderline dilated. Left ventricular wall thickness is mildly increased. Left ventricular systolic function is moderately reduced. The ejection fraction is estimated to be 30-35%. Compared to the prior exam, left ventricular function is moderately decreased. There is moderate global hypokinesis of the left ventricle. Assessment of diastolic parameters suggests a pseudonormalization pattern, consistent with elevated filling pressures. Right Ventricle: The right ventricle is normal in size and function. Atria: The left atrium is moderately dilated. Right atrial size is normal. There is no Doppler evidence for an interatrial shunt. Mitral Valve: There is moderate mitral annular calcification. There is trace mitral regurgitation. Aortic Valve: The aortic valve is normal in structure and function. No aortic regurgitation is present. Tricuspid Valve: The tricuspid valve leaflets are thin and pliable. There is mild tricuspid regurgitation. The right ventricular systolic pressure is estimated at 36 mmHg assuming a right atrial pressure of 8 mm Hg. Pulmonic Valve: The pulmonic valve is normal in structure and function. There is no pulmonic valvular regurgitation. There is no significant valvular heart disease. Great Vessels: The aortic root is normal size. The ascending aorta is mildly enlarged. The aortic arch is normal in size. The IVC is of normal diameter and collapses less than 50% with a sniff. This suggests a right atrial pressure of 8 mm Hg. Pericardium/ Pleura There is no pericardial effusion. MMode/2D Measurements & Calculations LVIDd: 5.9 cm LA dimension: 4.8 cm RA long axis LVOT diam: 2.4 cm LVIDs: 4.4 cm AoV Opening FS: 25.3 % LA A2 area: 23.5 cm RA area EPSS: 1.4 cm LA A4 area: 30.2 cm Ao root diam IVSd: 1.1 cm LA length (vol) : 19.0 cm LVPWd: 1.2 cm RA vol Aortic Jxn: 2.7 cm LA vol: 86.1 ml : 56.8 ml asc Aorta Diam LA vol index RA : 28.1 mm2 Ao Arch Diam (Prox Trans): 3.1 cm IVC diam: 1.6 cm LV pierre. diameter/BSA LV sys. diameter/BSA RVD1 (basal) TAPSE: 1.7 cm (cm/m^2): 2.9 (cm/m^2): 2.2 Doppler Measurements & Calculations Ao V2 max MV E max lalito MV E/A: 1.00 TR max lalito : 185.5 cm/sec : 123.5 cm/sec Med Peak E' Lalito : 262.6 cm/sec Ao max PG MV A max lalito TR max PG : 13.8 mmHg : 124.1 cm/sec E/E' med: 28.0 : 27.6 mmHg Ao mean PG MV P1/2t: 57.8 msec Lat Peak E' Lalito PA V2 max : 97.5 cm/sec LVOT Max Lalito MVA(VTI): 2.4 cm2 E/E' lat: 21.5 PA mean PG : 85.3 cm/sec E/e' average: 24.8 Pulm A Revs Dur PA Accel Time AYSE(I,D): 1.8 cm : 0.11 sec sev ratio MV A dur: 0.13 sec MV V2 mean MV P1/2t max lalito Ao V2 mean LV V1 max PG : 86.9 cm/sec : 123.0 cm/sec MV mean PG MVA(P1/2t): 3.8 cm2 Ao V2 VTI: 35.5 cm LV V1 VTI AYSE(V,D): 2.0 cm2 : 14.2 cm MV V2 VTI MV dec time : 0.20 sec PA V2 mean AYSE indexed to BSA Pulm A Revs Dur - MV A : 65.9 cm/sec (cm^2/m^2): 0.88 Dur: -0.02 msec Reading Physician:PM
--- NOTE | 2016-09-08 15:24 | NUR ---
spiritual care: pt request conversational visit. pt's in room. pt expressed feelings about medical concern and general health challenges. prayer
--- NOTE | 2016-09-08 15:47 | NUR ---
Social Work- Initial Assessment Data: See Initial Assessment. Pt is a 61 year old female admitted 09/08/16 for cellulitis per H&P. Pt's insurance is [employer] and [employer]. Pt's PCP is Harris Landin MD. EMR reviewed. SW met with patient and at bedside regarding discharge planning, SW role explained. Pt alert and oriented x3. Pt resides in [place] with her where she remains independent with her ADLs. [place] and does not drive. Pt has no HH or SNF history. Pt has no LTC or VA benefits. Pt has no DPOA, SW encouraged pt to complete paperwork. PT evaluation pending ultrasound to rule out DVT. SW left phone number and plan on whiteboard. Pt to discharge home with to transport via POV. SW will continue to follow, R/O HH. Assessment: Pt who is independent at base. Plan: PT evaluation pending ultrasound to rule out DVT. Pt to discharge home with to transport via POV. SW will continue to follow, R/O HH. GARRET Wall Addendum: 09/08/16 at 1550 by RUBY COLLINS SS Amended: Links added.
--- NOTE | 2016-09-08 15:54 | DRSVH ---
PROCEDURE: US VENOUS LEG DUPLEX BILATERAL INDICATIONS: elevated Dimer, Pain/swellin in leg. DVT eval TECHNIQUE: Real-time imaging, as well as color and pulse Doppler interrogation, were performed of the deep veins of both legs from the inguinal ligament to the popliteal fossa. COMPARISON: None. FINDINGS: The deep veins are normally compressible, and free of intraluminal thrombus. Color and pu lse Doppler demonstrate normal phasic intravascular flow. There is normal augmentation response to d istal compression maneuver. IMPRESSION: No deep venous thrombosis identified within either the left or right lower extremities. Dictated by: Jose HELM Interpreted: Cuca Cespedes MD on 09/08/2016 at 15:54 Transcribed by: LPUE on 09/08/2016 at 15:54 Approved by: Cuca Cespedes M.D. on 09/08/2016 at 21:50
[2016-09-08] MEDS: Vancomycin Inj 1,250 MG in 0.9% Sodium Chloride 250 ML IV SCH (16:06)
--- NOTE | 2016-09-08 17:18 | PCM.PNMED ---
Subjective Date of Service Sep 08, 2016 Subjective Patient was seen and examined at bedside agree with the current plan Exam Vital Signs Vital Sign - Last Date Time Temp Pulse Resp B/P Pulse Ox O2 Delivery O2 Flow Rate FiO2 09/08/16 15:50 36.5 89 20 145/85 97 Room Air Intake and Output 09/07/16 09/07/16 09/08/16 Cumulative From/Thru 15:00 23:00 07:00 09/07/16 23:30 - 09/08/16 05:46 Intake Total 50 ml 50 ml Output Total 200 ml 200 ml Balance -150 ml -150 ml Intake Oral 50 ml 50 ml Output Urine Total 200 ml 200 ml Lab and Diagnostics Result Diagram: 09/08/16 0730 09/08/16 0730 Microbiology Blood cultures and urine pending. X-Rays, CTs and MRIs X-Ray Chest Interpretation Chest Xray Interpretation: Impression: Cardiomegaly. No acute cardiopulmonary process. View: Portable Interpretation / Wet Read by: Wet read ED physician X-Ray Interpretation Xray Interpretation: Impression: No acute abnormalities. X-Ray Ordered: Foot left Interpretation / Wet Read by: Wet read ED physician Night read of chest angiogram was negative for pulmonary embolism 12-lead ECG Please see history of present illness Assessment & Plan 61-year-old woman with history of diabetes mellitus, insulin using, peripheral neuropathy, congestive heart failure, coronary artery disease, at least one CVA , and history of cellulitis in her feet requiring IV antibiotics presented with similar pain before that required antibiotics. Presentation is concerning for cellulitis versus DVT, and history of shortness of breath and elevated d-dimer raise suspicion for pulmonary embolism. #1 Acute Sepsis, present on admission, treatment initiated Heart rate 104, white blood cell count 13.9 with left shift, with source of left lower extremity cellulitis, and possible urinary tract infection. Lactic acid 1.3 Patient's blood pressure is stable, however remains tachycardic. IV normal saline to tachycardia subsides. Antibiotics as below #2 Acute BL lower extremity pain, L>R , present on admission, evaluation and treatment ongoing -Elevated d-dimer, swelling, redness consistent with DVT, history of cellulitis requiring IV antibiotics with similar presentation, at this point pain can be attributed to either as both are likely. -Bilateral duplex venous ultrasound to be performed morning. IV antibiotics clindamycin 600 mg 3 times a day and vancomycin dosed per pharmacy CRP pending LRINEC score is pending CRP - (if crp is >150 score will be 6, otherwise only 2) Lovenox dosed pharmacy #3 acutely Elevated troponin, present on admission, evaluation ongoing to rule out NSTEMI. Troponin mildly elevated at 0.013, this is elevated from baseline on previous records, EKG did not demonstrate any acute changes suggesting ischemia or infarction. Given her state of stress, tachycardia, as may be demand ischemia. Trend troponins every 4 hours Stat EKG with any chest pain, shortness of breath, change in mental status. IV fluids as above for tachycardia If troponins elevate will initiate NSTEMI protocols and treatment. Continue home simvastatin #4 Chronic congestive heart failure, present on admission, status unknown. Respiratory rate has been 20 while in the ER and since hospitalization. This in addition to her stated complaint dyspnea on exertion Lung burrows were clear on exam, however concerned that dyspnea on exertion maybe represent worsening congestive heart failure or onset of cor pulmonale. Echocardiogram from outpatient record from 2011 showed improved ejection fraction from 55-60% however stated that there was right ventricular hypertrophy , mitral and aortic calcifications. Continue home furosemide, carvedilol, #5 Uncontrolled diabetes mellitus type II insulin using, present on admission, treatment initiated. Blood glucose was 166, reviewed his short record shows a psychiatrist about every time she has been in the hospital, most recent A1c of the findings on her outpatient record from November 2015 and was 11.7 Outpatient record reflects 40 units Novolin twice a day, 20 units of NovoLog with every meal. We will start patient on 40 units basal insulin twice a day, but high-dose correctional scale. Obtained A more recent A1c Diabetes education while inpatient #6 reconcile home medications. VTE Prophylaxis: Lovenox. Dosed per pharm. GI prophylaxis: Not indicated Pain management: Due to numerous allergies, patient can only receive NSAIDs, which she says does help "takes the edge off" 600 mg every 4 hours ibuprofen GI Prophylaxis: Not indicated VTE Prophylaxis: Sub-Q Enoxaparin Resuscitation Status: CPR: Attempt Resuscitation Shereen Balderas DO Sep 08, 2016 17:18
--- NOTE | 2016-09-08 17:22 | NUR ---
Skin L foot cellulitis unchanged from this am. Foot is slightly pink, painful, warm and swollen. Medial buttocks red, blanchable. Pt has good bed mobility with reminders. Positioned R side with pillows.
[2016-09-09] MEDS: Clindamycin Inj 600 MG in IV Premix 1 EACH IV SCH ×3 (03:48→21:00)
[2016-09-09] MEDS: 0.9% Sodium Chloride 1,000 ML IV SCH ×2 (03:48→12:27)
[2016-09-09 03:51] VITALS: BP 162/85; PULSE 90; RESP 20; O2SAT 94
[2016-09-09] MEDS: Vancomycin Inj 1,250 MG in 0.9% Sodium Chloride 250 ML IV SCH ×2 (04:33→17:15)
--- NOTE | 2016-09-09 05:00 | NUR ---
Pain c/o pain x2 this shift. Prn APAP administered and effective. Requesting to only use APAP this shift instead of Ibuprofen due to GI upset with use. Currently resting in bed without any complaints.
[2016-09-09 05:46] VITALS: PULSE 82
[2016-09-09 07:26] LABS: Mean Corpuscular Hemoglobin 25.7 pg (27.0-35.0); Mean Corpuscular Volume 84.9 fL (81-100)
[2016-09-09 07:54] LABS: Magnesium 1.7 mg/dL (1.6-2.6)
[2016-09-09 08:00] VITALS: PULSE 86
[2016-09-09] MEDS: Vancomycin Dose per Pharmacist XX SCH (08:30)
[2016-09-09] MEDS: Insulin LISPRO 300 Unit/3 mL Inj SUBQ SCH ×4 (08:52→20:32)
[2016-09-09] MEDS: Insulin GLARgine 100 Unit/mL Syringe SUBQ SCH ×2 (08:52→21:01)
--- NOTE | 2016-09-09 09:25 | NUR ---
Evaluation completed. Please go to "Notes" then click on "Assessments and Notes" (bottom left corner of screen). Then select appropriate discipline tab on top of screen.
[2016-09-09 10:18] VITALS: BP 165/93; PULSE 96; RESP 20; O2SAT 98
--- NOTE | 2016-09-09 12:40 | NUR ---
SNF choice list provided. Luanne Marmolejo MSW
--- NOTE | 2016-09-09 12:40 | NUR ---
Social Work- Continued D/C Planning Data: EMR reviewed. Pt is on day 1 of hospitalization for cellulitis per H&P. Cardiology to consult. SW followed up with patient at bedside regarding discharge plan. SW spoke with PT regarding pt, PT assessment recommending SNF at this time. SW explained SNF recommendation to pt. Pt immediately became tearful and states that she cannot go to a SNF. Pt has stairs going into her home, unable to complete the stairs at this time. SW provided emotional support and explained recommendation. Pt not willing to make a SNF choice at this time. Paperwork in chart. SW will continue to follow. Assessment: Pt who would benefit from SNF. Plan: PT recommends SNF at this time. Pt not willing to make a SNF choice at this time. Paperwork in chart. SW will continue to follow. GARRET Wall
[2016-09-09 15:11] VITALS: BP 167/82; PULSE 94; RESP 19; O2SAT 97
--- NOTE | 2016-09-09 16:24 | PCM.PNMED ---
Subjective Date of Service Sep 09, 2016 Subjective Patient was seen and examined at bedside today. Patient denies any chest pain, shortness of breath, nausea, vomiting, diarrhea. Patient reports fatigue and some increase in shortness of breath which has been happening over the last few weeks. Exam Vital Signs Vital Sign - Last Date Time Temp Pulse Resp B/P Pulse Ox O2 Delivery O2 Flow Rate FiO2 09/09/16 15:11 36.7 94 19 167/82 97 Room Air Intake and Output 09/08/16 09/08/16 09/09/16 Cumulative From/Thru 15:00 23:00 07:00 09/07/16 23:30 - 09/09/16 04:34 Intake Total 2429 ml 1392 ml 3871 ml Output Total 500 ml 530 ml 1230 ml Balance 1929 ml 862 ml 2641 ml Intake Oral 820 ml 250 ml 1120 ml IV Total 1609 ml 1142 ml 2751 ml Output Urine Total 500 ml 530 ml 1230 ml # Bowel Movements 0 0 0 Exam Physical Exam: GEN: Patient was awake, lethargic, responding appropriately to questions HEENT: PERRLA, EOMI, Neck soft supple, trachea midline, nomocephalic/atraumatic CV: +S1/S2, RRR, no murmur auscultated Respiratory: CTAB, no wheezes, rales, rhonchi, no usage of accessory muscles noted GI: +bowel sounds x4, soft, compressible, non TTP EXT: no c/c +2 pitting edema, left IT band pain, left foot pain Neuro: CN II-XII grossly intact Psych: mood and affect were appropriate IVs and Medications Medications Reviewed: Medications were reviewed in detail Lab and Diagnostics Result Diagram: 09/09/16 0655 09/09/16 0655 Microbiology Blood cultures and urine pending. X-Rays, CTs and MRIs X-Ray Chest Interpretation Chest Xray Interpretation: Impression: Cardiomegaly. No acute cardiopulmonary process. View: Portable Interpretation / Wet Read by: Wet read ED physician X-Ray Interpretation Xray Interpretation: Impression: No acute abnormalities. X-Ray Ordered: Foot left Interpretation / Wet Read by: Wet read ED physician Night read of chest angiogram was negative for pulmonary embolism 12-lead ECG Please see history of present illness Assessment & Plan 61-year-old woman with history of diabetes mellitus, insulin using, peripheral neuropathy, congestive heart failure, coronary artery disease, at least one CVA , and history of cellulitis in her feet requiring IV antibiotics presented with similar pain before that required antibiotics. Presentation is concerning for cellulitis versus DVT, and history of shortness of breath and elevated d-dimer raise suspicion for pulmonary embolism. Acute sepsis present on admission possibly secondary to left lower extremity cellulitis versus urinary tract infection -White blood cell count on admission was 13.9 currently 5.7 -Continue IV antibiotics -Lactic acid on admission 1.3 -Continue to monitor Acute lower extremity pain left greater than right present on admission -Physical therapy evaluation and treatment -Elevated d-dimer however venous Doppler of the lower extremities negative for DVT -Continue IV clindamycin 600 mg 3 times a day and vancomycin -CRP elevated 4.0 -LRINEC score is pending CRP - (if crp is >150 score will be 6, otherwise only 2 ) -Lovenox dosed pharmacy Acutely Elevated troponin, present on admission, evaluation ongoing to rule out NSTEMI. -Troponins mildly elevated at 0.013, repeat troponin 0.014, 0.014, currently normal 0.010 (elevated troponins may most likely be secondary to demand ischemia ) -Stat EKG with any chest pain, shortness of breath, change in mental status. -Discontinue IV fluids as patient is becoming hypertensive -If troponins elevate will initiate NSTEMI protocols and treatment. -Start atorvastatin 40 mg daily at bedtime -Cholesterol 163, LDL 101, triglycerides 107 Chronic congestive heart failure, present on admission, status unknown. -Patient complains of dyspnea on exertion -Repeat echo shows an EF of 30-35% significant decrease from previous exam -Echocardiogram from outpatient record from 2011 showed improved ejection fraction from 55-60% however stated that there was right ventricular hypertrophy , mitral and aortic calcifications. -Restart Lasix 40 mg twice a day by mouth, -Restart carvedilol 25 mg twice a day carvedilol 25mg twice a day, -Consult cardiology Uncontrolled diabetes mellitus type II insulin using, present on admission, treatment initiated. -Hemoglobin A1c is 8.0 today improved from November 2015 hemoglobin A1c was 11.7 -Increased Lantus to 25 units twice a day -Blood glucose was 166, reviewed his short record shows a psychiatrist about every time she has been in the hospital, most recent A1c of the findings on her outpatient record from November 2015 and was 11.7 -Outpatient record reflects 40 units Novolin twice a day, 20 units of NovoLog with every meal. -We will start patient on 40 units basal insulin twice a day, but high-dose correctional scale. -Diabetes education while inpatient VTE Prophylaxis: Lovenox. Dosed per pharm. GI prophylaxis: Not indicated Pain management: Due to numerous allergies, patient can only receive NSAIDs, which she says does help "takes the edge off" 600 mg every 4 hours ibuprofen Disposition: The patient is currently progressing well in regards to her infection patient's blood cultures have been negative 24 hours and urine culture still pending. However the patient's white blood cell count is improving. The patient is complaining of shortness of breath with exertion and increasing fatigue and this is been going on for several weeks. The patient's echo showed that she had a worsening EF this most likely may be secondary to her CHF. Cardiology was consulted and called appreciate their recommendations. GI Prophylaxis: Not indicated VTE Prophylaxis: Sub-Q Enoxaparin Resuscitation Status: CPR: Attempt Resuscitation Time spent Greater than 35 minutes Shereen Balderas DO Sep 09, 2016 15:52
[2016-09-09] MEDS: Nystatin 100,000 Unit/Gm 15 Gm Powder TOPICAL SCH ×2 (16:27→20:34)
[2016-09-09] MEDS ORDERED: Vancomycin Serum Trough XX ONE (16:30)
--- NOTE | 2016-09-09 17:39 | NUR ---
Emotion Pt told by staff that she is being recommended to d/c to a "half-way" and is very tearful about this Gave pt time to express herself and then talked with her about the rehab side of a SNF and that it was temporary to get her stronger. She talked some more about going and seemed to be less tearful and more open to this transfer. Bed down and locked, call light w/in reach.
--- NOTE | 2016-09-09 17:39 | PCM.PHAPRO ---
Progress Date of Service: Sep 09, 2016 Assessment/Plan A: Vancomycin dosing by pharmacy for 61 y/o diabetic woman She is also on clindamycin Estimated CrCl 74.1 mL/min (Cockcroft & Gault using AdjBW) Estimated vancomycin half-life is 11 hours and estimated Vd is 73 liters P: Give one 2000 mg vancomycin IV loading dose Continue with vancomycin 1250 mg every 12 hours Target trough range of 10-15 mcg/mL for now Trough prior to 4th dose came back at 14.1 so will continue with current dose of 1250 mg Q12H with another trough drawn prior to dose on @1630 Thank you. Pharmacy will continue to follow this patient. Mamta Weeks PharmD Sep 09, 2016 17:39
--- NOTE | 2016-09-09 19:02 | CONS ---
[address] [address] CONSULTATION REPORT PATIENT: COSME HURST : 1955 MR#: [id number] ADMIT: 09/08/2016 JOB ID: [id number] DATE OF SERVICE: 09/09/2016 CARDIOLOGY CONSULTATION: REASON FOR CONSULT: Evaluation of LV dysfunction. CHIEF COMPLAINT: Left foot pain, fever, some shortness of breath. PRESENT HISTORY: This 61-year-old pleasant female who has a history of nonischemic cardiomyopathy dated back to 2011, at that time LV ejection fraction was about 40% to 45%, status post left heart catheterization on December 31, 2011, at that time she did not have any obvious significant coronary artery disease, history of type 2 diabetes mellitus with peripheral neuropathy, retinopathy, essential hypertension, hyperlipidemia, history of CVA, recent soft tissue infection, presented with left foot pain, fever. She was found to have left foot cellulitis. She underwent a venous Doppler which was negative for DVT. She had an echocardiogram yesterday which revealed borderline dilated left ventricle with LV ejection fraction 30% to 35% with moderate global hypokinesis, pseudonormalization type of diastolic dysfunction. Right ventricular function was normal. Pulmonary artery systolic pressure was about 36 mmHg. There was no significant valvular pathology. Left atrium was moderately dilated. Because of abnormal LV function cardiology consult was sought. At present, patient lying on bed. Overall she is feeling better. Her temperature is getting better. She still has pain in her left foot. She is not having any active chest pain or PND, orthopnea, hemoptysis, or productive sputum. She is not actively bleeding. PAST MEDICAL HISTORY: History of nonischemic cardiomyopathy, likely hypertensive heart disease, status post left heart catheterization in December 2011 which did not reveal any significant coronary artery disease, history of systolic and diastolic heart failure as well as multiple CVA, hypertension, hyperlipidemia, depression, gout, sleep apnea, obesity, fibromyalgia, neuropathy, and other problems as stated above. PAST SURGICAL HISTORY: Total abdominal hysterectomy and bilateral salpingo-oophorectomy, cholecystectomy, tonsillectomy, left thumb debridement due to staph infection. MEDICATIONS: At home: Carvedilol 6.25 mg in the morning and 12.5 mg in the evening, ciprofloxacin 500 mg b.i.d., clindamycin 300 mg q.8 h., Plavix 75 mg daily, Lasix 40 mg tablet 80 mg in the morning and 40 mg in the evening, insulin, sertraline 100 mg daily, potassium chloride 10 mEq tablet 20 mEq b.i.d., simvastatin 40 mg q.h.s., topiramate 50 mg b.i.d. ALLERGIES: CODEINE, PENICILLIN, HYDROCODONE, HYDROMORPHONE, SULFONAMIDE ANTIBIOTICS, GABAPENTIN. FAMILY HISTORY: Positive for COPD, kidney problem. REVIEW OF SYSTEMS: Ten-point review of systems was obtained and is negative except as stated above. SOCIAL HISTORY: Denies any tobacco abuse or alcohol abuse. PHYSICAL EXAMINATION: Blood pressure 167/82, heart rate 94, respiratory rate 19, temperature 36.7, oxygen saturation room air 97%. HEENT: No significant jaundice. Neck: No apparent JVP. Chest: Decreased air entry at the bases. CVS: Clinically S1, S2 normal. No S3, no S4. Very soft ejection systolic murmur at the base. Abdomen: Obese. No obvious pulsatile mass felt. Extremity: Patient has warm feet. Left more than right. There is a mild bilateral pedal edema. I can feel distal pulses. Vascular no evidence of critical limb ischemia. PERCUSSION INSTRUMENT TUNER: Alert. Oriented to time, place, and person. The patient has bilateral sensory loss in glove and stocking pattern involving both feet and legs. On telemetry at present the patient is in sinus rhythm. LABORATORIES: Sodium 139, potassium 3.8, BUN 26, creatinine 0.76. Her initial troponin was 0.014 and repeat 1.010, which is within normal limits. Triglyceride 107, total cholesterol 163, LDL 101, HDL 40, TSH 1.11. Her initial WBC was 13.9, which got better and improved to 5.7. Hemoglobin 10.7, platelets 177. On September 08 hemoglobin was 12.8, in January 2013 it was 10.7. The patient denies any active bleeding. She had a CT chest on September 08. There was no pulmonary embolism. Lungs were clear. Large nodule in the right lobe of the thyroid. Venous Doppler study yesterday did not reveal any obvious DVT. Ankle x-ray: No displaced fracture. The patient had carotid Doppler in November 2011. That time she has less than 50% bilateral internal carotid artery disease. EKG on admission revealed sinus rhythm with sinus tachycardia at a rate about 105. Low-voltage complexes in the precordial leads. She has some nonspecific ST-T changes. I compared this EKG with the old EKG. I do not see any new significant ST-T changes. Sinus tachycardia was new. QTc was 472 msec. ASSESSMENT AND PLAN: Left ventricular dysfunction with underlying dilated cardiomyopathy. The patient has known history of left ventricular dysfunction in the past which got improved, however again there is a recurrence of left ventricular dysfunction. She had left heart catheterization in December 2011. At that time she did not have any obvious significant coronary artery disease. Likelihood that she has hypertensive heart disease is high. She has a pseudonormalization type of diastolic dysfunction as well. However, at present clinically she is not in heart failure. Clinically, I do not suspect that we are dealing with acute coronary syndrome. Troponin did not cross the threshold for acute TN. No new EKG ischemic changes. The patient has symptoms of left foot cellulitis and she is responding to medical treatment. Further management I will leave dove a leave up to our hospitalist team and workup to make sure there is no underlying osteo. I can feel the distal pulses. Clinically she does not have any critical limb ischemia or significant peripheral arterial disease based on physical examination. She is not getting ALFONSO inhibitor or spironolactone. At this point of time I will recommend starting her on ALFONSO inhibitor as well as spironolactone. Start lisinopril 5 mg daily and spironolactone 12.5 mg daily. Targeted dose four lisinopril is about 20-40 mg a day and Aldactone at least 25 mg a day. She is on already on carvedilol; target dose is 25 mg twice a day. Will recommend slowly and gradually optimization and maximization of her cardiac medications. Discussed the plan with the patient. She agrees and concurs. The patient is to follow up with Dr. Nichole as an outpatient. She used to see Dr. Nichole in the clinic. Thanks for the cardiology consult. TIME: Total time spent about 70 minutes including reviewing old charts, previous left heart catheterization, examining the patient, dictation, etc.
[2016-09-09 20:23] VITALS: BP 144/88; PULSE 81; RESP 20; O2SAT 96
[2016-09-10] VITALS (9 sets, daily range): BP systolic 122–174; BP diastolic 73–95; PULSE 63–96; RESP 16–20; O2SAT 94–99
--- NOTE | 2016-09-10 03:02 | NUR ---
[employer] APPRAISER; reports: sinus rhythm 60's to 70's.
[2016-09-10] MEDS: Clindamycin Inj 600 MG in IV Premix 1 EACH IV SCH ×3 (03:51→21:15)
[2016-09-10] MEDS: Vancomycin Inj 1,250 MG in 0.9% Sodium Chloride 250 ML IV SCH ×2 (04:13→17:43)
[2016-09-10 06:28] LABS: Mean Corpuscular Hemoglobin 25.9 pg (27.0-35.0); Mean Corpuscular Volume 84.2 fL (81-100)
[2016-09-10] MEDS: Insulin LISPRO 300 Unit/3 mL Inj SUBQ SCH ×4 (08:00→22:00)
[2016-09-10] MEDS: Vancomycin Dose per Pharmacist XX SCH (08:30)
[2016-09-10] MEDS: Nystatin 100,000 Unit/Gm 15 Gm Powder TOPICAL SCH ×2 (08:50→21:56)
[2016-09-10] MEDS: Insulin GLARgine 100 Unit/mL Syringe SUBQ SCH ×2 (09:52→22:08)
--- NOTE | 2016-09-10 10:22 | NUR ---
NINA signed, Lunane Marmolejo PEDIATRIC MEDICAL ASSISTANT
--- NOTE | 2016-09-10 15:26 | PCM.PNMED ---
Subjective Date of Service Sep 10, 2016 Subjective Patient was seen and examined at bedside today. Patient denies any chest pain, shortness of breath, nausea, vomiting, diarrhea. Patient states that she has left foot pain and an "upset stomach". Exam Vital Signs Vital Sign - Last Date Time Temp Pulse Resp B/P Pulse Ox O2 Delivery O2 Flow Rate FiO2 09/10/16 14:56 36.5 85 18 135/83 99 Room Air Intake and Output 09/09/16 09/09/16 09/10/16 Cumulative From/Thru 15:00 23:00 07:00 09/07/16 23:30 - 09/10/16 03:57 Intake Total 2471 ml 525 ml 6867 ml Output Total 1850 ml 3080 ml Balance 621 ml 525 ml 3787 ml Intake Oral 1145 ml 2265 ml IV Total 1326 ml 525 ml 4602 ml Output Urine Total 1850 ml 3080 ml # Bowel Movements 0 Exam Physical Exam: GEN: Patient was awake, alert, responding appropriately to questions HEENT: PERRLA, EOMI, Neck soft supple, trachea midline, nomocephalic/atraumatic CV: +S1/S2, RRR, no murmur auscultated Respiratory: CTAB, no wheezes, rales, rhonchi GI: +bowel sounds x4, soft, compressible, non TTP EXT: no c/c mild edema of the left foot no signs of erythema Neuro: CN II-XII grossly intact Psych: mood and affect were appropriate IVs and Medications Medications Reviewed: Medications were reviewed in detail Lab and Diagnostics Result Diagram: 09/10/16 0620 09/10/16 0620 Microbiology Blood cultures and urine pending. X-Rays, CTs and MRIs X-Ray Chest Interpretation Chest Xray Interpretation: Impression: Cardiomegaly. No acute cardiopulmonary process. View: Portable Interpretation / Wet Read by: Wet read ED physician X-Ray Interpretation Xray Interpretation: Impression: No acute abnormalities. X-Ray Ordered: Foot left Interpretation / Wet Read by: Wet read ED physician Night read of chest angiogram was negative for pulmonary embolism 12-lead ECG Please see history of present illness Assessment & Plan 61-year-old woman with history of diabetes mellitus, insulin using, peripheral neuropathy, congestive heart failure, coronary artery disease, at least one CVA , and history of cellulitis in her feet requiring IV antibiotics presented with similar pain before that required antibiotics. Presentation is concerning for cellulitis versus DVT, and history of shortness of breath and elevated d-dimer raise suspicion for pulmonary embolism. Acute sepsis present on admission possibly secondary to left lower extremity cellulitis versus urinary tract infection -White blood cell count on admission was 13.9 currently 57.3 -Continue IV antibiotics -Lactic acid on admission 1.3 today 0.9 -Continue to monitor Acute lower extremity pain left greater than right present on admission -Physical therapy evaluation and treatment -Elevated d-dimer however venous Doppler of the lower extremities negative for DVT -Continue IV clindamycin 600 mg 3 times a day and vancomycin -CRP elevated 4.0 -LRINEC score is pending CRP - (if crp is >150 score will be 6, otherwise only 2 ) -Lovenox dosed pharmacy Acutely Elevated troponin, present on admission, evaluation ongoing to rule out NSTEMI. -Troponins mildly elevated at 0.013, repeat troponin 0.014, 0.014, currently normal 0.010 (elevated troponins may most likely be secondary to demand ischemia ) -If troponins elevate will initiate NSTEMI protocols and treatment. -Stat EKG with any chest pain, shortness of breath, change in mental status. -Discontinue IV fluids as patient is becoming hypertensive Mild hypokalemia -Potassium 3.4 -Replete with 40 mEq by mouth 1 dose -We will continue to monitor Hyperlipidemia -Start atorvastatin 40 mg daily at bedtime -Cholesterol 163, LDL 101, triglycerides 107 Chronic congestive heart failure, present on admission, status unknown. -Patient complains of dyspnea on exertion -Repeat echo shows an EF of 30-35% significant decrease from previous exam -Echocardiogram from outpatient record from 2011 showed improved ejection fraction from 55-60% however stated that there was right ventricular hypertrophy , mitral and aortic calcifications. - Continue Lasix 40 mg twice a day by mouth, -Restart carvedilol 25 mg twice a day carvedilol 25mg twice a day daily as recommended by cardiology -Increased spironolactone from 12.5 mg to 25 mg daily -Increased lisinopril 5 mg to 10 mg as recommended by cardiology with a goal of 20 mg daily -Consult cardiology and appreciate their recommendations Uncontrolled diabetes mellitus type II insulin using, present on admission, treatment initiated. -Hemoglobin A1c is 8.0 improved from November 2015 hemoglobin A1c was 11.7 -Increased Lantus to 25 units twice a day as patient seems to be tolerating this well we will consider increasing to 30 units twice a day tomorrow after reevaluation of the patient's blood glucose. -Blood glucose was 166, reviewed his short record shows a psychiatrist about every time she has been in the hospital, most recent A1c of the findings on her outpatient record from November 2015 and was 11.7 -Outpatient record reflects 40 units Novolin twice a day, 20 units of NovoLog with every meal. -Diabetes education while inpatient VTE Prophylaxis: Lovenox. Dosed per pharm. GI prophylaxis: Not indicated Pain management: Due to numerous allergies, patient can only receive NSAIDs, which she says does help "takes the edge off" 600 mg every 4 hours ibuprofen Disposition: The patient seems to be progressing well and her pain is decreased daily. There is some concern that this potentially could be gout however this would be an atypical presentation. We will consider starting indomethacin today for pain control and reassess in the morning. GI Prophylaxis: Not indicated VTE Prophylaxis: Sub-Q Enoxaparin VTE Mechanical Devices: Intermittant Pneumatic CD Resuscitation Status: CPR: Attempt Resuscitation Time spent Greater than 35 minutes Shereen Balderas DO Sep 10, 2016 15:01
--- NOTE | 2016-09-10 15:48 | PROG NOTE ---
[address] [address] PROGRESS NOTE PATIENT: COSME HURST : 1955 MR#: [id number] ADMIT: 09/08/2016 JOB ID: [id number] DATE: 09/10/2016 SUBJECTIVE: Patient laying down on bed. No chest pain or shortness of breath. Her left foot pain is getting better. Today, she walked for about 15 feet. No new cardiovascular symptoms. In summary, this 61-year-old, pleasant female, who has a history of nonischemic cardiomyopathy, with fluctuation in LV function dated back since 2011. At that time, she had LV ejection fraction about 40% to 45%, status post left heart catheterization in December 2011 which did not reveal any obvious significant coronary artery disease, likely hypertensive cardiomyopathy, type 2 diabetes mellitus with peripheral neuropathy, retinopathy, essential hypertension, hyperlipidemia, history of CVA, recent soft tissue infection, presented with left foot pain, fever and found to have left foot cellulitis. Venous Doppler was negative for DVT. She had echocardiogram on September 08, 2016, which revealed decrease in LV function to 30% to 35% with borderline dilated left ventricle with global hypokinesis, CO2 normalization type of diastolic dysfunction. Right ventricular function was normal. There was no significant valvular pathology. Yesterday I saw her. I the patient was started on ALFONSO inhibitor and spironolactone in addition to already ingesting beta sarah therapy. Her troponin did not cross the threshold for acute [place]. OBJECTIVE: Blood pressure 135/83, heart rate 85, respiratory rate 18, oxygen saturation on room air 99%. Neck: No apparent JVP. Chest: Few fibrotic crackles at the base. CVS: S1, S2 normal. No S3, no S4. Very soft ejection systolic murmur at the base. Abdomen: Obese. No obvious pulsatile mass felt. Extremity: Both feet are warm. There is mild bilateral pedal edema. No evidence of critical limb ischemia. GENERAL PARTNER: Alert, oriented to time, place, and person. The patient also has sensory loss in both feet in glove and stocking pattern. Telemetry: Sinus rhythm with some PACs. LABORATORIES: Sodium 140, potassium 3.4, BUN 17, creatinine 0.85. Normal bilirubin, AST, ALT. Magnesium yesterday was 1.7. WBC has decreased to 7.3, hemoglobin 10.8, platelets 198. ASSESSMENT AND PLAN: Nonischemic cardiomyopathy likely hypertensive heart disease. The patient has known left ventricular dysfunction since 2011. At that time, patient had left heart catheterization in December 2011 which did not reveal any obvious coronary artery disease. No acute coronary syndrome. The patient has noncritical carotid artery disease in the past. At present, clinically, she is not in gross congestive heart failure. At this point of time, will recommend maximization of medical management. Consider potassium supplementation. Slowly and gradually optimize ALFONSO inhibitor to target dose of lisinopril (20-40 mg daily). The patient has established financial services sales representative, Dr. Nichole. We will recommend her to see Dr. Nichole in two weeks in the clinic. If medical management, there is no improvement in LV function, consider AICD. She is getting full dose of Lovenox. At this point of time there is no obvious indication for full dose of Lovenox. Consider Lovenox as per pulmonary embolism prophylaxis dose. Thanks for the Cardiology consult. Cardiology service will sign off.
--- NOTE | 2016-09-10 16:06 | NUR ---
Social Work- Continued D/C Planning Data: EMR reviewed. Pt is on day 2 of hospitalization for cellulitis per H&P. Cardiology recommending outpt follow up. SW followed up with patient at bedside regarding discharge plan. PT assessed pt 09/09/16. Pt ambulating 15 feet, still unable to complete steps. Pt has 5 steps to enter her home. PT recommending SNF. SW revisited SNF recommendation with pt. Pt adamant she does not want to go to a SNF. SW discussed Home Health with pt, though this is not ideal as pt cannot enter her home. Pt denies having friends to live with. Pt resides with her daughters and , unable to live with other family. SW addressed pt's concerns and questions. At pt's request, SW called pt's daughter Leidy [phone]. Pt's daughter did not answer the phone. SW left message and called multiple times, voicemail is full and unable to accept messages. SW encouraged pt to make 1 SNF choice by end of day to begin referral process. SW followed up regarding this matter and pt was asleep, SW unable to awake. Pt has not made a SNF choice at this time. Paperwork in chart. PASRR in folder. SW will continue to follow. Assessment: Pt who would benefit from SNF. Plan: PT recommends SNF at this time. Pt not willing to make a SNF choice at this time. Paperwork in chart. PASRR in folder. SW will continue to follow. Luanne Marmolejo CHANGE CONSULTANT
[2016-09-10] MEDS: Indomethacin 25 mg Capsule PO SCH ×2 (16:43→21:56)
[2016-09-11] VITALS (8 sets, daily range): BP systolic 105–133; BP diastolic 63–77; PULSE 66–80; RESP 16–18; O2SAT 95–98
--- NOTE | 2016-09-11 03:35 | NUR ---
PAIN; no request for pain rx. Up to [facility] with one assist of talent acquisition administrator.
[2016-09-11] MEDS: Clindamycin Inj 600 MG in IV Premix 1 EACH IV SCH (03:57)
[2016-09-11] MEDS: Vancomycin Inj 1,250 MG in 0.9% Sodium Chloride 250 ML IV SCH (04:40)
[2016-09-11] MEDS: Insulin LISPRO 300 Unit/3 mL Inj SUBQ SCH ×4 (08:00→20:59)
[2016-09-11] MEDS: Vancomycin Dose per Pharmacist XX SCH (08:30)
[2016-09-11 08:33] LABS: Mean Corpuscular Hemoglobin 25.7 pg (27.0-35.0); Mean Corpuscular Volume 83.2 fL (81-100)
[2016-09-11] MEDS: Insulin GLARgine 100 Unit/mL Syringe SUBQ SCH ×2 (08:49→20:59)
[2016-09-11] MEDS: Indomethacin 25 mg Capsule PO SCH ×3 (08:50→20:12)
[2016-09-11] MEDS: Nystatin 100,000 Unit/Gm 15 Gm Powder TOPICAL SCH ×2 (08:52→20:12)
--- NOTE | 2016-09-11 11:54 | PCM.PNMED ---
Subjective Date of Service Sep 11, 2016 Subjective Patient was seen and examined at bedside today. Patient denies any chest pain, shortness of breath, nausea, vomiting, diarrhea. Patient states that her left foot pain is significantly improved after the addition of the indomethacin yesterday. Patient states that she is able to bear her full weight on it and is doing better. Exam Vital Signs Vital Sign - Last Date Time Temp Pulse Resp B/P Pulse Ox O2 Delivery O2 Flow Rate FiO2 09/11/16 10:50 36.2 66 16 118/72 96 Room Air Intake and Output 09/10/16 09/10/16 09/11/16 Cumulative From/Thru 15:00 23:00 07:00 09/07/16 23:30 - 09/11/16 06:32 Intake Total 300 ml 636 ml 700 ml 8503 ml Output Total 1440 ml 1800 ml 930 ml 7250 ml Balance -1140 ml -1164 ml -230 ml 1253 ml Intake Oral 300 ml 636 ml 400 ml 3601 ml IV Total 300 ml 4902 ml Output Urine Total 1440 ml 1800 ml 930 ml 7250 ml # Bowel Movements 1 0 1 Exam Physical Exam: GEN: Patient was awake, alert, responding appropriately to questions HEENT: PERRLA, EOMI, Neck soft supple, trachea midline, nomocephalic/atraumatic CV: +S1/S2, RRR, no murmur auscultated Respiratory: CTAB, no wheezes, rales, rhonchi GI: +bowel sounds x4, soft, compressible, non TTP EXT: no c/c/e Neuro: CN II-XII grossly intact Psych: mood and affect were appropriate IVs and Medications Medications Reviewed: Medications were reviewed in detail Lab and Diagnostics Result Diagram: 09/11/1682309/11/16823 Microbiology Blood cultures and urine pending. X-Rays, CTs and MRIs X-Ray Chest Interpretation Chest Xray Interpretation: Impression: Cardiomegaly. No acute cardiopulmonary process. View: Portable Interpretation / Wet Read by: Wet read ED physician X-Ray Interpretation Xray Interpretation: Impression: No acute abnormalities. X-Ray Ordered: Foot left Interpretation / Wet Read by: Wet read ED physician Night read of chest angiogram was negative for pulmonary embolism 12-lead ECG Please see history of present illness Assessment & Plan 61-year-old woman with history of diabetes mellitus, insulin using, peripheral neuropathy, congestive heart failure, coronary artery disease, at least one CVA , and history of cellulitis in her feet requiring IV antibiotics presented with similar pain before that required antibiotics. Presentation is concerning for cellulitis versus DVT, and history of shortness of breath and elevated d-dimer raise suspicion for pulmonary embolism. Acute sepsis present on admission possibly secondary to left lower extremity cellulitis versus urinary tract infection -White blood cell count on admission was 13.9 currently 6.6 -Discontinue IV antibiotics start doxycycline 100 mg twice a day (patient is allergic to cephalosporins) -Lactic acid on admission 1.3 on 09/10/18 was 0.9 -Continue to monitor -repeat UA Acute lower extremity pain left greater than right present on admission ( resolving) most likely 2/2 gout -Continue Indomethicin TID -Uric acid level -Colchicine 1.2 mg 1 dose followed by 0.6 mg in 1 hour 1 dose -Physical therapy evaluation and treatment -Elevated d-dimer however venous Doppler of the lower extremities negative for DVT -Continue IV clindamycin 600 mg 3 times a day and vancomycin -CRP elevated 4.0 -LRINEC score is pending CRP - (if crp is >150 score will be 6, otherwise only 2 ) -Lovenox dosed pharmacy Acutely Elevated troponin, present on admission, evaluation ongoing to rule out NSTEMI. -Troponins mildly elevated at 0.013, repeat troponin 0.014, 0.014, currently normal 0.010 (elevated troponins may most likely be secondary to demand ischemia ) -If troponins elevate will initiate NSTEMI protocols and treatment. -Stat EKG with any chest pain, shortness of breath, change in mental status. -Discontinue IV fluids as patient is becoming hypertensive Mild hypokalemia (resolved 4.6) -Potassium 3.4 -Replete with 40 mEq by mouth 1 dose -We will continue to monitor Hyperlipidemia -Start atorvastatin 40 mg daily at bedtime -Cholesterol 163, LDL 101, triglycerides 107 Chronic congestive heart failure, present on admission, status unknown. -Patient complains of dyspnea on exertion -Repeat echo shows an EF of 30-35% significant decrease from previous exam -Echocardiogram from outpatient record from 2011 showed improved ejection fraction from 55-60% however stated that there was right ventricular hypertrophy , mitral and aortic calcifications. - Continue Lasix 40 mg twice a day by mouth, -Continue carvedilol 25mg twice a day daily as recommended by cardiology -Increased spironolactone from 12.5 mg to 25 mg daily continue 25 mg daily -Continue 10 mg as the patient is currently running low normal cardiology wanted to optimize the patient to 20 mg daily however at this time the patient is clinically stable on 10 mg daily. -Consulted cardiology Uncontrolled diabetes mellitus type II insulin using, present on admission, treatment initiated. -Hemoglobin A1c is 8.0 improved from November 2015 hemoglobin A1c was 11.7 -Continue Lantus to 25 units twice a day -Blood glucose was 166, reviewed his short record shows a psychiatrist about every time she has been in the hospital, most recent A1c of the findings on her outpatient record from November 2015 and was 11.7 -Outpatient record reflects 40 units Novolin twice a day, 20 units of NovoLog with every meal. However patient has been stable with 25 units of Lantus daily at bedtime and insulin sliding scale. -Diabetes education while inpatient VTE Prophylaxis: Lovenox. Dosed per pharm. GI prophylaxis: Not indicated Pain management: Due to numerous allergies, patient can only receive NSAIDs, which she says does help "takes the edge off" 600 mg every 4 hours ibuprofen Disposition: The patient seems to be progressing well and her pain is decreased daily. The patient is significantly improved and is able to bear full weight on her foot at this time. Patient's blood cultures have been negative 48 hours and has had 3 days of IV antibiotics. I think the patient is currently at a optimal regimen for her blood glucose she should remain on Lantus 25 units daily at bedtime and sliding scale at mealtimes. This seems to be an optimal regimen for a patient and she should follow-up with her primary care for further adjustments to be made to this particular drug regimen. The patient has been seen by cardiology and the patient seems to be stable on 25 mg a spironolactone daily, carvedilol 25 mg twice a day and lisinopril 10 mg daily. The patient currently lives with her daughter who has 10 children and she has been caring for these grandchildren. It has been explained to the patient that her heart should no longer take the stress of this particular situation and that it will be best if the patient lived alone and had visited the grandchildren on occasion. This was explained to the daughter who is currently looking into finding a place for the patient. Uric acid is being drawn at this time however I think the patient's pain may have been secondary to gout more so than cellulitis. The patient was treated for cellulitis and is currently doing well as her white count is now trending down. We will continue the patient on doxycycline for 7 days to complete the course of antibiotics for cellulitis. Patient should go home on indomethacin as a seems to be helping the patient. We will reassess in the morning. Patient is scheduled to have nutrition come by and give her some education on a diabetic diet, heart healthy diet, and about foods that trigger gout. GI Prophylaxis: Not indicated VTE Prophylaxis: Sub-Q Enoxaparin VTE Mechanical Devices: Intermittant Pneumatic CD Resuscitation Status: CPR: Attempt Resuscitation Time spent Greater than 40 minutes Shereen Balderas DO Sep 11, 2016 11:53
--- NOTE | 2016-09-11 13:00 | NUR ---
Social Work: Readiness for Discharge Data: EMR reviewed. Pt is on day 3 of hospitalization for cellulitis per H&P. Pt is not medically stable, anticipate discharge in 1-2 more days. PT evaluated pt today- pt walked 400 ft. SW followed up with patient and daughters at bedside regarding discharge plan and RN PT. Daughter Leidy states that family is installing a ramp up the steps to patients home so pt can enter. SW explained HH RN PT role and recommendation. Choice List provided. Pt had no preference so SW consulted rotating calendar, referral made to [facility] for RN PT. Access given. F2F in folder to be signed. Pt to discharge home with [facility] PT, to transport via POV. SW will continue to follow. Assessment: Pt who would benefit from RN PT. Plan: PT recommending home with RN PT. Referral made to [facility]. F2F in folder to be signed. Pt to discharge home with [facility] RN PT, to transport via POV. SW will continue to follow. Luanne Marmolejo MSW
--- NOTE | 2016-09-11 15:29 | NUR ---
Ambulation Pt ambulating well with FWW SBA with steady gait. Pt ambulated around hallway [place] once with PT well. Ambulating to bathroom to void SBA FWW. Care continues
[2016-09-11] MEDS ORDERED: Vancomycin Serum Trough XX ONE (16:30)
[2016-09-11 18:13] LABS: APPEARANCE,URINE HAZY (CLEAR,HAZY); COLOR,URINE YELLOW (YELLOW)
[2016-09-11 18:14] LABS: OCCULT BLOOD,URINE TRACE (NEGATIVE); UROBILINOGEN,URINE NORMAL (NORMAL)
[2016-09-12 05:14] VITALS: BP 129/69; PULSE 87; RESP 16; O2SAT 92
--- NOTE | 2016-09-12 05:40 | PCM.DIMED ---
Discharge Instructions Date of Service Sep 12, 2016 Dates of Hospitalization Sep 08, 2016 at 02:58 Discharge Diagnosis Discharge Diagnosis Sepsis due to cellulitis, Left LE pain, acute on chronic CHF systolic, T2DM uncontrolled, HTN Test Results [facility] Diagnostic [place] [address] Patient Name: COSME HURST MR#: [id number] Location: [facility] Ordering Phys: Tory Dillard MD Date of Service: 09/08/16 0238 PROCEDURE: CT ANGIO CHEST PULMONARY EMBOLISM ([id number]) INDICATIONS: shortness of breath TECHNIQUE: After the administration of intravenous contrast, 2 mm thick sections acquired from the pulmonary apices to the posterior costophrenic angles. 3-dimensional maximum intensity projection (MIP) coronal and sagittal reformats were then acquired through the thorax. For radiation dose reduction, the following was used: automated exposure control, adjustment of mA and/or kV according to patient size. COMPARISON: None. FINDINGS: Image quality: Excellent. Pulmonary arteries: Pulmonary arteries are normal in size, and demonstrate no intraluminal filling defects to suggest central pulmonary embolism. Lungs and pleura: Lungs are clear. No pleural effusions or pneumothorax. Central and peripheral airways are patent. Mediastinum: Heart size is normal, without pericardial effusion. No mediastinal or hilar adenopathy. Thoracic aorta is normal in caliber and enhancement. Esophagus is normal in caliber, without hiatal hernia. Bones and chest wall: No suspicious bony lesions. Ribs and thoracic spine appear intact throughout. Thyroid gland contains a large 4.0 x 3.5 cm nodule in the right lobe.. No axillary or supraclavicular adenopathy. Abdomen: Gallbladder is surgically absent. Visualized upper abdominal solid organs appear normal in the early arterial phase of enhancement. IMPRESSION: 1. No pulmonary embolus. 2. Large nodule in the right lobe of the thyroid gland. Recommend thyroid ultrasound for further evaluation. Dictated by: Maria Victoria Cardoza MD, PhD on 09/08/2016 at 9:54 Approved by: Maria Victoria Cardoza MD, PhD on 09/08/2016 at 9:58 [facility] Diagnostic [place] [address] Patient Name: COSME HURST MR#: [id number] Location: [facility] Ordering Phys: Tory Dillard MD Date of Service: 09/08/16 014 PROCEDURE: X-RAY CHEST ONE VIEW, PORTABLE ([id number]) INDICATIONS: shortenss of breath TECHNIQUE: One view of the chest was acquired. COMPARISON: [facility], CR, XR CHEST 2VW, 08/13/2015, 14:54. [facility], CT, CT ANGIO CHEST PE, 09/08/2016, 3:02. [facility], CR, CHEST 1VW (PORTABLE), 02/16/2013, 21:37. FINDINGS: Surgical changes and devices: None. Lungs and pleura: No pleural effusions or pneumothorax. Lungs are clear. Mediastinum: Mediastinal contours appear normal. Heart size is normal. Bones and chest wall: No suspicious bony lesions. Overlying soft tissues appear unremarkable. IMPRESSION: No acute cardiopulmonary disease. Dictated by: Jose Vernon [facility] Interpreted: Cuca Cespedes MD on 09/08/2016 at 9: 53 Transcribed by: LUPE on 09/08/2016 at 9:54 Approved by: Cuca Cespedes M.D. on 09/08/2016 at 21:14 [facility] Diagnostic Imaging Department [place], [place] [id number] Patient Name: COSME HURST MR#: [id number] Location: [facility] Ordering Phys: Tory Dillard MD Date of Service: 09/08/16 014 PROCEDURE: X-RAY LEFT ANKLE, MINIMUM THREE VIEWS ([id number]) INDICATIONS: IDIOPATHIC LEFT ANKLE PAIN AND SWELLING TECHNIQUE: 3 views of the ankle were acquired. COMPARISON: None. FINDINGS: Bones: No fractures or dislocations. Ankle mortise is normally aligned. No suspicious bony lesions. Prominent plantar cutaneous lesion 5. Soft tissues: No tibiotalar joint effusion. Achilles tendon appears normal. Vascular calcifications indicate atherosclerosis. IMPRESSION: No displaced fracture seen. If there is continued pain, followup exam or additional imaging such as MRI or CT could be performed for further assessment. [facility] Diagnostic Imaging Department [place], [place] [id number] Patient Name: COSME HURST MR#: [id number] Location: [facility] Ordering Phys: Minesh Kim DO Date of Service: 09/08/16 0318 PROCEDURE: US VENOUS LEG DUPLEX BILATERAL INDICATIONS: elevated Dimer, Pain/swellin in leg. DVT eval TECHNIQUE: Real-time imaging, as well as color and pulse Doppler interrogation, were performed of the deep veins of both legs from the inguinal ligament to the popliteal fossa. COMPARISON: None. FINDINGS: The deep veins are normally compressible, and free of intraluminal thrombus. Color and pulse Doppler demonstrate normal phasic intravascular flow. There is normal augmentation response to distal compression maneuver. IMPRESSION: No deep venous thrombosis identified within either the left or right lower extremities. Dictated by: Jose HELM Interpreted: Cuca Cespedes MD on 09/08/2016 at 15: 54 Transcribed by: LUPE on 09/08/2016 at 15:54 Approved by: Cuca Cespedes M.D. on 09/08/2016 at 21:50 [facility] Diagnostic Imaging Department [place], [place] [id number] Patient Name: COSME HURST MR#: [id number] Location: [facility] Ordering Phys: Marylou Montes DO Date of Service: 09/12/16 1229 Caution: Report not yet finalized and possibly incomplete! PROCEDURE: X-RAY LEFT TIBIA/FIBULA, TWO VIEWS ([id number]) INDICATIONS: swelling, pain TECHNIQUE: 2 views of the tibia and fibula were acquired. COMPARISON: [facility], CR, XR ANKLE 3VW LT, 09/12/2016, 12:43. [facility], CR, XR FOOT 3VW LT, 09/12/2016, 12:43. FINDINGS: Bones: No fractures or dislocations. No suspicious bony lesions. Soft tissues: No suspicious soft tissue calcifications or masses. Vascular calcifications indicate atherosclerosis. IMPRESSION: No displaced fracture seen. If there is continued pain, followup exam or additional imaging such as MRI or CT could be performed for further assessment. Dictated by: Jose HELM Interpreted: Maria Victoria Cardoza MD on 09/12/2016 at 14:34 Transcribed by: LANA on 09/12/2016 at 14:34 [facility] Diagnostic [place] [address] Patient Name: COSME HURST MR#: [id number] Location: [facility] Ordering Phys: Marylou Montes DO Date of Service: 09/12/169 Caution: Report not yet finalized and possibly incomplete! PROCEDURE: X-RAY LEFT FOOT COMPLETE, MINIMUM THREE VIEWS ([id number]) INDICATIONS: swelling, pain TECHNIQUE: 3 views of the foot were acquired. COMPARISON: None. FINDINGS: Bones: No fractures or dislocations. No suspicious bony lesions. Prominent plantar calcaneal enthesophyte. Soft tissues: No tibiotalar joint effusion. Achilles tendon appears normal. Vascular calcifications indicate atherosclerosis. IMPRESSION: No displaced fracture seen. If there is continued pain, followup exam or additional imaging such as MRI or CT could be performed for further assessment. Dictated by: Jose HELM Interpreted: Maria Victoria Cardoza MD on 09/12/2016 at 14:32 Transcribed by: LANA on 09/12/2016 at 14:32 [facility] Diagnostic [place] [address] Patient Name: COSME HURST MR#: [id number] Location: [facility] Ordering Phys: Marylou Montes DO Date of Service: 09/12/169 Caution: Report not yet finalized and possibly incomplete! PROCEDURE: X-RAY LEFT ANKLE, MINIMUM THREE VIEWS ([id number]) INDICATIONS: swelling, pain TECHNIQUE: <<?>> views of the ankle were acquired. COMPARISON: [facility], CR, XR ANKLE 3VW LT, 09/08/2016, 1:41. FINDINGS: Bones: No fractures or dislocations. Ankle mortise is normally aligned. No suspicious bony lesions. Soft tissues: No tibiotalar joint effusion. Achilles tendon appears normal. Vascular calcifications indicate atherosclerosis. IMPRESSION: No definite acute radiographic abnormality. If indicated cross- sectional imaging such as CT or MRI could be performed. Dictated by: Jose HELM Interpreted: Maria Victoria Cardoza MD on 09/12/2016 at 14:33 Transcribed by: LANA on 09/12/2016 at 14:33 Dictated by: Jose HELM Interpreted: Cuca Cespedes MD on 09/08/2016 at 9: 53 Transcribed by: LUPE on 09/08/2016 at 9:53 Approved by: Cuca Cespedes M.D. on 09/08/2016 at 21:14 Diet Heart Healthy Patient Instructions Recommended diet: Foods to limit: Organ meats, such as liver, kidneys, sweetbreads, and brains Meats, including reyes, beef, pork, and bhakta Game meats Any other meats in large amounts Anchovies, sardines, brewer, mackerel, and scallops Gravy Beer Follow-up plan Please f/u with your PCP in one week. Please have her follow the left leg and order additional imaging as needed. If swelling pewrsists, she may consider CT/ MRI of the leg. Please f/u with cardiology in 2weeks. Marylou Montes DO Sep 12, 2016 05:40
[2016-09-12 06:38] LABS: Mean Corpuscular Hemoglobin 26.2 pg (27.0-35.0); Mean Corpuscular Volume 83.6 fL (81-100)
[2016-09-12 08:31] VITALS: BP 134/76; PULSE 69; RESP 16; O2SAT 96
[2016-09-12] MEDS: Insulin GLARgine 100 Unit/mL Syringe SUBQ SCH (09:06)
[2016-09-12] MEDS: Insulin LISPRO 300 Unit/3 mL Inj SUBQ SCH ×2 (09:06→11:57)
[2016-09-12] MEDS: Indomethacin 25 mg Capsule PO SCH ×2 (09:08→15:01)
[2016-09-12] MEDS: Nystatin 100,000 Unit/Gm 15 Gm Powder TOPICAL SCH (09:11)
[2016-09-12 09:17] VITALS: PULSE 78
--- NOTE | 2016-09-12 11:00 | NUR ---
NUTRITION CONSULT: Provided pt with diet instruction on Gout/Cardiac diet. Handouts provided.
[2016-09-12 13:16] VITALS: PULSE 72
--- NOTE | 2016-09-12 13:47 | NUR ---
Pain / activity Pt c/o left foot pain and headache. She states the JAIN started after she worked with PT this morning. Pt was able to ambulate once around the unit, and also stated that she was able to go up and down steps. Administered 975 mg PO Tylenol for pt's JAIN and foot pain. Pt reported pain was 4/10. Pt will likely discharge today. Care continues.
--- NOTE | 2016-09-12 14:32 | DRSVH ---
PROCEDURE: X-RAY LEFT FOOT COMPLETE, MINIMUM THREE VIEWS ([id number]) INDICATIONS: swelling, pain TECHNIQUE: 3 views of the foot were acquired. COMPARISON: None. FINDINGS: Bones: No fractures or dislocations. No suspicious bony lesions. Prominent plantar calcaneal enthe sophyte. Soft tissues: No tibiotalar joint effusion. Achilles tendon appears normal. Vascular calcification s indicate atherosclerosis. IMPRESSION: No displaced fracture seen. If there is continued pain, followup exam or additional lawrence ging such as MRI or CT could be performed for further assessment. Dictated by: Jose Vernon A Interpreted: Maria Victoria Cardoza MD on 09/12/2016 at 14:32 Transcribed by: LANA on 09/12/2016 at 14:32 Approved by: Maria Victoria Cardoza MD, PhD on 09/12/2016 at 16:35
--- NOTE | 2016-09-12 14:34 | DRSVH ---
PROCEDURE: X-RAY LEFT TIBIA/FIBULA, TWO VIEWS ([id number]) INDICATIONS: swelling, pain TECHNIQUE: 2 views of the tibia and fibula were acquired. COMPARISON: [facility], CR, XR ANKLE 3VW LT, 09/12/2016, 12:43. [facility], CR, XR FOOT 3VW LT, 09/12/2016, 12:43. FINDINGS: Bones: No fractures or dislocations. No suspicious bony lesions. Soft tissues: No suspicious soft tissue calcifications or masses. Vascular calcifications indicate atherosclerosis. IMPRESSION: No displaced fracture seen. If there is continued pain, followup exam or additional lawrence ging such as MRI or CT could be performed for further assessment. Dictated by: Jose Vernon RRA Interpreted: Maria Victoria Cardoza MD on 09/12/2016 at 14:34 Transcribed by: LANA on 09/12/2016 at 14:34 Approved by: Maria Victoria Cardoza MD, PhD on 09/12/2016 at 16:35
--- NOTE | 2016-09-12 14:34 | DRSVH ---
PROCEDURE: X-RAY LEFT ANKLE, MINIMUM THREE VIEWS ([id number]) INDICATIONS: swelling, pain TECHNIQUE: 3 views of the ankle were acquired. COMPARISON: [facility], CR, XR ANKLE 3VW LT, 09/08/2016, 1:41. FINDINGS: Bones: No fractures or dislocations. Ankle mortise is normally aligned. No suspicious bony lesions . Soft tissues: No tibiotalar joint effusion. Achilles tendon appears normal. Vascular calcification s indicate atherosclerosis. IMPRESSION: No definite acute radiographic abnormality. If indicated cross-sectional imaging such as CT or MRI could be performed. Dictated by: Jose Vernon [facility] Interpreted: Maria Victoria Cardoza MD on 09/12/2016 at 14:33 Transcribed by: LANA on 09/12/2016 at 14:33 Approved by: Maria Victoria Cardoza MD, PhD on 09/12/2016 at 16:35
[2016-09-12] MEDS ORDERED: LISI-571 PO (15:35)
[2016-09-12] MEDS ORDERED: DOXY100T2 PO (15:35)
[2016-09-12] MEDS ORDERED: SPIR25TA PO (15:36)
[2016-09-12] MEDS ORDERED: FURO40TA4 PO (15:36)
[2016-09-12] MEDS ORDERED: INDO25CA PO (15:39)
--- NOTE | 2016-09-12 17:31 | NUR ---
Discharge Pt discharged to home with family via private vehicle at 1730 hrs. VSS. PIV removed intact. No complaints of pain. All personal possessions sent with pt. Discharge and follow up instructions given to pt and she expressed understanding.
--- NOTE | 2016-09-18 06:02 | PCM.DC.MED ---
Discharge Summary Date of Service Sep 18, 2016 Dates of Hospitalization Date of Hospital Admission Sep 08, 2016 at 02:58 Date of Discharge: Sep 12, 2016 Providers: Admitting Physician: Leeanna Horvath MD Primary Care Physician: Harris Landin MD Attending Physician: Leeanna Horvath MD Diagnosis at Time of Discharge Diagnosis at Time of Discharge Sepsis due to cellulitis, Left LE pain, acute on chronic CHF systolic, T2DM uncontrolled, HTN Consultations Cardiology, PT Procedures XRay, CTs & MRIs X-Ray Chest Interpretation Chest Xray Interpretation: Impression: Cardiomegaly. No acute cardiopulmonary process. View: Portable Interpretation / Wet Read by: Wet read ED physician X-Ray Interpretation Xray Interpretation: Impression: No acute abnormalities. X-Ray Ordered: Foot left Interpretation / Wet Read by: Wet read ED physician Night read of chest angiogram was negative for pulmonary embolism ECG 12 Lead Please see history of present illness Brief History Patient is a pleasant 61-year-old woman history of DM type II peripheral neuropathy, insulin using, congestive heart failure, coronary artery disease, fibromyalgia, hypertension, and history of stroke presented to the emergency department complaining of left foot swelling and pain that began about 3-1/2 days ago. She states the pain in her foot increased in severity since onset now radiates up her entire left leg, she is also noticing that her foot is red. Additionally she says that her right foot is also beginning to cause her some pain as well. She had this previously which required hospitalization with IV antibiotics. She was concerned that she had fractured her foot or that it was once again infected. She states she is unable to bear weight on her foot and subsequently unable to walk. She denies any recent trauma or injury to her foot. The pain occasionally radiates up her leg into her back, and also describes left upper extremity pain into her shoulder and believes it all to be connected. She rates the pain 10 out of 10 and says she does not believe the pain can be any worse than it is now met is the worst pain in her entire life and could cause her to pass out. She describes the pain as throbbing and stinging. Additionally patient conveys that she has begun to notice increasing dyspnea on exertion, and her blood sugars have been uncontrollably high since the pain in her foot has started. She reports that she has had a fever at home of 100.2 the last couple of nights, associated with chills, no cold sweats, but remained afebrile in the emergency department. She has had lightheadedness and dizziness for the last month, worsening in the last couple of days, and states this is one of the reasons she decided to come to the ER was because of the worsening lightheadedness dizziness, now with worsening left lower extremity pain, pain on the right foot, inability to maintain adequate blood sugar, and concern for kidney infection given the back pain. She also endorses polyuria, polydipsia, a single watery diarrhea since being in the emergency department, In the emergency department she was found to have heart rate of 104, blood pressure 146/83, respiratory rate of 16, temperature 36.8, and O2 saturation 99 % on room air. White blood cell count of 13.9, 77.8% neutrophils, hemoglobin 12.8, platelets 223. Electrolytes were within normal limits, BUN was 32, creatinine 0.96, blood glucose was 166, liver enzymes were normal, magnesium 1.7, lactic acid 1.3, BNP 937, troponin was 0.013 PT 12.8, INR 1.19, d-dimer 0.6. EKG: Heart rate 105, sinus tachycardia, QTC 472, no signs of acute ischemia or infarction, beginning of left axis deviation. Due to the shortness of breath, and elevated d-dimer, patient received chest angio-pulmonary embolism series This is read as negative for pulmonary embolism. Chest x-ray is interpreted as having cardiomegaly, no acute cardiopulmonary process as read by the emergency room physician. Left foot and ankle was read by the emergency room physician as having no acute abnormalities. Hospital Course 61-year-old woman with history of diabetes mellitus, insulin using, peripheral neuropathy, congestive heart failure, coronary artery disease, at least one CVA , and history of cellulitis in her feet requiring IV antibiotics presented with similar pain before that required antibiotics. Presentation was concerning for cellulitis versus DVT, and history of shortness of breath and elevated d-dimer raise suspicion for pulmonary embolism. Acute sepsis present on admission possibly secondary to left lower extremity cellulitis versus urinary tract infection -White blood cell count on admission was 13.9 currently 7.4 -Discontinue IV antibiotics start doxycycline 100 mg twice a day (patient is allergic to cephalosporins). She is sent home on doxy. -Lactic acid on admission 1.3 on 09/10/18 was 0.9 Acute lower extremity pain left greater than right present on admission ( resolving) most likely 2/2 gout -Continue Indomethicin TID at discharge -Uric acid levels were ordered and elevated. -Colchicine 1.2 mg 1 dose followed by 0.6 mg in 1 hour 1 dose were given -Physical therapy evaluation and treatment was ordered and they worked with the patient regularly. -Elevated d-dimer however venous Doppler of the lower extremities negative for DVT -She was treated with clindamycin 600 mg 3 times a day and vancomycin -CRP elevated 4.0 -Lovenox dosed pharmacy Acutely Elevated troponin, present on admission, evaluation ongoing to rule out NSTEMI. -Troponins mildly elevated at 0.013 during this admission, repeat troponin 0.014 , 0.014, currently normal 0.010 (elevated troponins may most likely be secondary to demand ischemia) Mild hypokalemia (resolved 4.6) -Potassium 3.4 -Repleted as needed Hyperlipidemia -Start atorvastatin 40 mg daily at bedtime -Cholesterol 163, LDL 101, triglycerides 107 Chronic congestive heart failure, present on admission, status unknown. -Patient complains of dyspnea on exertion -Repeat echo shows an EF of 30-35% significant decrease from previous exam -Echocardiogram from outpatient record from 2011 showed improved ejection fraction from 55-60% however stated that there was right ventricular hypertrophy , mitral and aortic calcifications. - Continue Lasix 40 mg twice a day by mouth, -Continue carvedilol 25mg twice a day daily as recommended by cardiology -Increased spironolactone from 12.5 mg to 25 mg daily continue 25 mg daily -Continue 10 mg Lisinopril -Consulted cardiology, we appreciate their recs Uncontrolled diabetes mellitus type II insulin using, present on admission, treatment initiated. -Hemoglobin A1c is 8.0 improved from November 2015 hemoglobin A1c was 11.7 -Outpatient record reflects 40 units Novolin twice a day, 20 units of NovoLog with every meal. -Diabetes education while inpatient VTE Prophylaxis: Lovenox. Dosed per pharm. GI prophylaxis: Not indicated Pain management: Due to numerous allergies, patient can only receive NSAIDs, which she says does help "takes the edge off" 600 mg every 4 hours ibuprofen Exam Vital Signs (Last) Date Time Temp Pulse Resp B/P Pulse Ox O2 Delivery O2 Flow Rate FiO2 09/12/16 13:16 72 Room Air 09/12/16 08:31 36.6 16 134/76 96 Exam General: NAD, positive for hirsuitism, morbid obesity HEENT: NCAT Heart: RRR, 1+ systolic murmur w/o radiation to shoulder Lungs: CTA, no crackles or wheezes Abd: Obese, pannus is present, normal bowel sounds, soft ExT: Much improved swelling in R LE, she has good ROM in both legs MSK: Patient is able to ambulate in the room Vasc: Positive for edema in both legs Neuro: No focal deficits Test 09/08/16 01:25 09/08/16 04:53 09/08/16 07:30 09/09/16 06:55 Prothrombin Time 12.8sec (8.1-12.5) Prothromb Time International Ratio 1.19ratio D-Dimer 0.6mg/L (<0.50) Hemoglobin A1c 8.0% (4.8-5.6) C-Reactive Protein 4.0mg/dL (0.0-0.5) Pro-B-Type Natriuretic Peptide 934.7pg/mL (0-287) Hold Mendes Top Tube Received (Received) Urine Culture Reflexed Indicated Neutrophils (%) (Auto) 68.6% (40-74) Lymphocytes (%) (Auto) 23.1% (14-46) Monocytes (%) (Auto) 6.8% (4-12) Eosinophils (%) (Auto) 1.2% (0-5) Basophils (%) (Auto) 0.2% (0-3) Magnesium Level 1.7mg/dL (1.6-2.6) Troponin T 0.010ug/L (0.0-0.011) Triglycerides Level 107mg/dL (0-149) Cholesterol Level 163mg/dL (100-199) LDL Cholesterol, Calculated 101.600mg/dL (0-99) VLDL Cholesterol 21.400mg/dL HDL Cholesterol 40mg/dL (>39) Cholesterol/HDL Ratio 4.08 (0.0-4.4) Thyroid Stimulating Hormone (TSH) 1.110uIU/mL (0.450-4.500) Free Thyroxine 0.90ng/dL (0.82-1.77) Test 09/09/16 16:25 09/10/16 06:20 09/11/16 08:24 09/11/16 17:58 Vancomycin Level Trough 14.1mcg/mL Lactic Acid Level 0.9mmol/L (0.4-2.0) Total Bilirubin 0.3mg/dL (0.0-1.2) Aspartate Amino Transf (AST/SGOT) 14U/L (0-50) Alanine Aminotransferase (ALT/SGPT) 13U/L (0-32) Alkaline Phosphatase 56U/L (25-165) Total Protein 6.3g/dL (6.4-8.4) Albumin 2.9g/dL (3.4-5.0) Procalcitonin 0.08ng/mL (0.00-0.08) Uric Acid 8.5mg/dL (2.6-7.2) Urine Color Yellow (YELLOW) Urine Appearance Hazy (CLEAR,HAZY) Urine pH 5.0 (5.0-8.0) Urine Specific [place] 1.030 (1.003-1.035) Urine Protein 30mg/dL (NEG,TRACE) Urine Glucose (UA) Negativemg/dL (NEGATIVE) Urine Ketones Negativemg/dL (NEGATIVE) Urine Occult Blood Trace (NEGATIVE) Urine Nitrite Negative (NEGATIVE) Urine Bilirubin Negative (NEGATIVE) Urine Urobilinogen Normalmg/dL (NORMAL) Urine Leukocyte Esterase Negative (NEGATIVE) Urine RBC 0-2/hpf (0-2) Urine WBC 0-5/hpf (0-5) Urine Epithelial Cells None/hpf (NONE-MOD) Urine Crystals None seen (NONE SEEN) Urine Bacteria Few/hpf (NONE-FEW) Urine Hyaline Casts None/lpf (NONE) Urine Granular Casts None seen (NONE SEEN) Urine Waxy Casts None seen (NONE SEEN) Urine Red Blood Cell Casts None seen (NONE SEEN) Urine White Blood Cell Casts None seen (NONE SEEN) Urine Mucus None seen (None Seen) Urine Trichomonas None seen (NONE SEEN) Urine Yeast None (NONE SEEN) Urinalysis Comment None Test 09/12/16 06:10 White Blood Count 7.4th/mm3 (3.8-10.1) Red Blood Count 4.20mil/mm3 (3.90-5.20) Hemoglobin 11.0g/dL (12.0-15.6) Hematocrit 35.1% (35.0-46.0) Mean Corpuscular Volume 83.6fL (81-100) Mean Corpuscular Hemoglobin 26.2pg (27.0-35.0) Mean Corpuscular Hemoglobin Concent 31.3% (32.0-37.0) Red Cell Distribution Width 15.7% (12.3-15.4) Platelet Count 177bil/L (150-400) Sodium Level 140mEq/L (134-144) Potassium Level 4.0mEq/L (3.5-5.2) Chloride Level 104mEq/L (97-108) Carbon Dioxide Level 23mmol/L (18-29) Blood Urea Nitrogen 27mg/dL (8-27) Creatinine 1.01mg/dL (0.57-1.00) Estimat Glomerular Filtration Rate 80mL/min (>59) Glucose Level 148mg/dL (60-99) Calcium Level 8.7mg/dL (8.5-10.1) Microbiology Results Blood cultures and urine pending. Discharge Medications Discharge Medications Carvedilol (Carvedilol) 25 Mg Tablet 25 MG PO BID (Reported) Clopidogrel (Clopidogrel) 75 Mg Tablet 75 MG PO DAILY (Reported) Doxycycline Hyclate (Doxycycline Hyclate) 100 Mg Tablet 100 MG PO BID Prescribed by: MARYLOU CARRILLO DO Fluticasone Propionate (Flovent HFA 110 mcg) 12 Gm Aer.w.adap 1 PUFF IH BID ( Reported) Furosemide (Furosemide) 40 Mg Tablet 40 MG PO BID Prescribed by: MARYLOU CARRILLO DO Indomethacin (Indomethacin) 25 Mg Capsule 25 MG PO TID Prescribed by: MARYLOU CARRILLO DO Insulin Aspart (NovoLOG U100 Insulin Vial) 100 U/Ml U 20 UNIT SUBQ TIDWM ( Reported) Lisinopril (Lisinopril) 5 Mg Tablet 10 MG PO DAILY Prescribed by: MARYLOU CARRILLO DO NPH, Human Insulin Isophane (Novolin-N U100 Insulin Vial) 100 Unit/1 Ml Vial 40 UNIT SUBQ BID (Reported) Potassium Chloride ER (Klor-Con M10) 10 Meq Tablet 20 MEQ PO DAILY (Reported) Simvastatin (Simvastatin) 40 Mg Tablet 40 MG PO HS (Reported) Spironolactone (Aldactone) 25 Mg Tablet 25 MG PO DAILY Prescribed by: MARYLOU CARRILLO DO Topiramate (Topamax) 50 Mg Tablet 50 MG PO BID (Reported) Followup Plan Follow-up plan Please f/u with your PCP in one week. Please have her follow the left leg and order additional imaging as needed. If swelling pewrsists, she may consider CT/ MRI of the leg. Please f/u with cardiology in 2weeks. Discharge Diet: Heart Healthy Patient Instructions Recommended diet: Foods to limit: Organ meats, such as liver, kidneys, sweetbreads, and brains Meats, including reyes, beef, pork, and bhakta Game meats Any other meats in large amounts Anchovies, sardines, brewer, mackerel, and scallops Gravy Beer Marylou Carrillo DO Sep 18, 2016 06:02
== END 2016-09-12 17:26 | disposition home or self-care (01) | DRG 871 ==
LOC: SED 22:27 → OSC 09-08 02:58
PROVIDERS: ADMIT Specialist; ATTEND Specialist
DX: A41.9 Sepsis, unspecified organism (principal); I50.23 Acute on chronic systolic (congestive) heart failure; L03.116 Cellulitis of left lower limb; I42.8 Other cardiomyopathies; Z86.73 Personal history of transient ischemic attack (TIA), and cerebral infarction without residual deficits; Z79.4 Long term (current) use of insulin; E11.40 Type 2 diabetes mellitus with diabetic neuropathy, unspecified; E11.65 Type 2 diabetes mellitus with hyperglycemia; Z98.61 Coronary angioplasty status; E87.6 Hypokalemia; E78.5 Hyperlipidemia, unspecified; M10.9 Gout, unspecified

== ENCOUNTER 2016-10-10 10:18 | Inpatient (IN) | payer MEDICAID, MEDICARE ==
[~2016-10-10] VITALS: Ht 157.5 cm; Wt 97.8 kg
[2016-10-10] VITALS (11 sets, daily range): BP systolic 93–127; BP diastolic 51–70; PULSE 62–69; RESP 16–21; O2SAT 96–100
[~2016-10-10 10:18] MED LIST changes: -CARV12.52 PO; +CARV25TA2 PO; -CARV6.252 PO; -CIPR-231 PO; -CLIN-78 PO; +DOXY100T2 PO; +FLUT12AE8 IH; +INDO25CA PO; -INSLIS SUBQ; +INSU100C8 SUBQ; +LISI-571 PO; +NPH,100V10 SUBQ; -NPH,100V11 SUBQ; -ONDA4TAB6 PO; -SERT100T9 PO; +SPIR25TA PO
--- NOTE | 2016-10-10 11:06 | ED.REPORT ---
HPI-General Illness Date of Service Oct 10, 2016 ED Provider: Alexia Ayon MD 61 year old female with a history of DM and CHF presents to the ER accompanied by her , referred by her PCP, Dr. Landin, due to recent lab results that indicate acute renal failure. Currently patient reports mild back and flank pain , but is otherwise asymptomatic. Patient denies dysuria. She does not voice any further medical complaints. Nursing Notes Stated Complaint: POSSIBLE RENAL FAILURE Chief Complaint: General Complaint Nursing Notes Reviewed: Yes Allergies: Coded Allergies: codeine (Verified Allergy, Severe, 12/19/14) duloxetine (Verified Allergy, Intermediate, "not feeling right "., 10/10/16 ) lorazepam (Verified Allergy, Intermediate, "hives", 10/10/16) Penicillins (Verified Allergy, Mild, 12/19/14) BUT TOLERATES AMOX (ACCORDING TO CHART) hydrocodone bitartrate (Verified Allergy, Mild, 12/19/14) hydromorphone (Verified Allergy, Mild, 12/19/14) oxycodone (Verified Allergy, Mild, 12/19/14) Sulfa (Sulfonamide Antibiotics) (Verified Allergy, Unknown, 12/19/14) gabapentin (Verified Adverse Reaction, Intermediate, Nausea,Vomiting, 12/19) Scheduled Carvedilol (Carvedilol) 25 Mg Tablet 12.5 MG PO BID Clopidogrel (Clopidogrel) 75 Mg Tablet 75 MG PO DAILY Furosemide (Furosemide) 40 Mg Tablet 40 MG PO QAM Furosemide (Furosemide) 40 Mg Tablet 20 MG PO QPM Insulin Aspart (NovoLOG U100 Insulin Vial) 100 U/Ml U 10 UNIT SUBQ TIDWM Lisinopril (Lisinopril) 5 Mg Tablet 5 MG PO DAILY NPH, Human Insulin Isophane (Novolin-N U100 Insulin Vial) 100 Unit/1 Ml Vial 30 UNIT SUBQ BID Potassium Chloride ER (Klor-Con M10) 10 Meq Tablet 20 MEQ PO DAILY Sertraline HCl (Zoloft) 100 Mg Tablet 100 MG PO DAILY Simvastatin (Simvastatin) 40 Mg Tablet 40 MG PO HS Topiramate (Topamax) 50 Mg Tablet 50 MG PO BID Scheduled PRN Indomethacin (Indomethacin) 25 Mg Capsule 25 MG PO TID PRN PRN gout General Time Seen by MD: 10:53 Chief Complaint Other (Acute Renal Failure) Hx Obtained From: Patient Arrived By: Walk-in Sudden in Onset?: No Additional Notes: Back pain Pertinent Negative: Pt denies other symptoms Context Related History: Reports Diabetes mellitus Recent Healthcare: Recent doctor visit Similar Sx Previous: No Past Medical History Past Medical History 1. Diabetes mellitus type 2, insulin using a. Diabetic neuropathy and retinopathy. b. Peripheral neuropathy. c. Suspected nephropathy. 2. Congestive heart failure, systolic dysfunction with most recently echocardiogram showing reduced EF of about 40% to 45% with mild global hypokinesis of left ventricle, severe hypokinesis of the inferior wall, right ventricle being normal in size and function. 3. History of previous CVA in November 24 which showed subacute lacunar infarct of the left caudate body in the left camejo radiata. 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 She has carotids which showed less than 50% bilateral stenosis of the internal carotids. 4. Depression. 5. Gout. 6. Hyperlipidemia. 7. Hypertension. 8. Sleep apnea. Patient now wearing CPAP at night. 9. Obesity. 10. History of osteoarthritis. 11. Fibromyalgia Neuropathy Past Surgical History 1. Total abdominal hysterectomy and bilateral salpingo-oophorectomy. 2. Cholecystectomy. 3. Heart catheterization procedure. 4. Tonsillectomy. 5. Left thumb debridement due to Staph infection. Smoking History Never Smoker Social History Other Social History: Good social support, Local resident Ambulatory Status Independent Review of Systems Full Review of Systems Constitutional: Denies: Chills, Fever GI: Denies: Abdominal pain, Constipation, Diarrhea, Nausea, Vomiting Female: Reports: Flank pain, Denies: Dysuria, Urinary frequency, Urinary urgency Musculoskeletal: Reports: Back pain Complete sys rev & neg: except as marked. Physical Exam Vital Signs Vital Signs Date Time Temp Pulse Resp B/P Pulse Ox O2 Delivery O2 Flow Rate FiO2 10/10/16 13:30 65 18 107/69 100 Room Air 10/10/16 10:51 62 16 97/54 100 Room Air 10/10/16 10:26 36.1 69 20 106/62 100 Initial VS: Reviewed Head / Eyes: Atraumatic, Normocephalic Neck: Supple, Non-tender, Full range of motion Extremities: Vascular intact, Neuro intact, No swelling, No tenderness Skin: Warm, Dry, No cyanosis Neurologic: Alert, Oriented, Nonfocal General/Constitutional: Awake, Alert, Well developed [place]. Respiratory / Chest: Breath sounds NL, No respiratory distress, No rales, No rhonchi, No wheezing Cardiovascular: Heart rate NL, Regular rhythm, Heart sounds NL, Cap refill not delayed, Peripheral circulation NL Abdomen: Soft, Non-tender, No guarding, No rebound, No distention Back: Full range of motion, No midline vertebral tend Mid back pain, musculoskeletal. Interpretation & Diagnostics Interpretation & Diagnostics: on 10/07 Creat 2.08 and BUN 114 K5.5 Lab Results Interpretation Result Diagram: 10/10/16 1054 10/10/16 1054 Test 10/10/16 10:54 White Blood Count 8.8th/mm3 (3.8-10.1) Red Blood Count 4.79mil/mm3 (3.90-5.20) Hemoglobin 12.5g/dL (12.0-15.6) Hematocrit 40.6% (35.0-46.0) Mean Corpuscular Volume 84.8fL (81-100) Mean Corpuscular Hemoglobin 26.1pg (27.0-35.0) Mean Corpuscular Hemoglobin Concent 30.8% (32.0-37.0) Red Cell Distribution Width 17.4% (12.3-15.4) Platelet Count 152bil/L (150-400) Neutrophils (%) (Auto) 68.7% (40-74) Lymphocytes (%) (Auto) 20.7% (14-46) Monocytes (%) (Auto) 7.8% (4-12) Eosinophils (%) (Auto) 2.1% (0-5) Basophils (%) (Auto) 0.6% (0-3) Sodium Level 138mEq/L (134-144) Potassium Level 4.7mEq/L (3.5-5.2) Chloride Level 101mEq/L (97-108) Carbon Dioxide Level 17mmol/L (18-29) Blood Urea Nitrogen 138mg/dL (8-27) Creatinine 3.04mg/dL (0.57-1.00) Estimat Glomerular Filtration Rate 22mL/min (>59) Glucose Level 77mg/dL (60-99) Calcium Level 9.9mg/dL (8.5-10.1) Phosphorus Level 5.4mg/dL (2.5-4.9) Magnesium Level 2.4mg/dL (1.6-2.6) Total Bilirubin 0.4mg/dL (0.0-1.2) Aspartate Amino Transf (AST/SGOT) 20U/L (0-50) Alanine Aminotransferase (ALT/SGPT) 25U/L (0-32) Alkaline Phosphatase 62U/L (25-165) Troponin T 0.036ug/L (0.0-0.011) Total Protein 8.2g/dL (6.4-8.4) Albumin 3.9g/dL (3.4-5.0) ECG Interpretation ECG Interpretation: Sinus rhythm, rate 61 Incomplete LBBB Improved from 09/08/2016 Time: 10:57 Interpreted by: ED physician Re-Eval/Medical Decision Med Decision/Clinical Course discharged on 09/18/16 with one dx of CHF. Lasix 40 BID and spironolactone. Has been quite compliant. He was noted to have a creatinine of 1 on discharge from the hospital. In follow-up with her primary care physician on Monday creatinine was up to 2. She is called by her primary care physician and asked to come to be further evaluated. Creatinine is now up to 3. She has no lower extremity edema is not short of breath and is otherwise feeling well. Source of Hx: Old records Time of Eval: 14:02 Re-Evaluation/Progress Note: Discussed lab results and need for admission. Patient is amenable to the plan. Return precautions given. All other questions addressed. Consultation #1: Referral / Consult Name: Chinmay Langford MD Consulted With: Nephrology Call Returned at: 13:24 Note: Agrees to consult. 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 I, Dr. Ayon, personally performed the history, physical exam and medical decision-making; I reviewed and confirmed the accuracy of the information in the transcribed note. Signed by: Arvind Saleh, 10/10/2016 at 14:18 copies to: Harris Landin MD, Shawna L MD Oct 10, 2016 11:06 SARWAT SCHOFIELD Oct 10, 2016 11:32
[2016-10-10 11:08] LABS: Mean Corpuscular Hemoglobin 26.1 pg (27.0-35.0); Mean Corpuscular Volume 84.8 fL (81-100); Platelet Count 152 bil/L (150-400)
[2016-10-10 11:09] LABS: BASOPHILS % (AUTO) 0.6 % (0-3); EOSINOPHILS % (AUTO) 2.1 % (0-5); MONOCYTES % (AUTO) 7.8 % (4-12); NEUTROPHILS % (AUTO) 68.7 % (40-74)
[2016-10-10 11:32] LABS: Magnesium 2.4 mg/dL (1.6-2.6)
[2016-10-10 11:44] LABS: TROPONIN T 0.036 ug/L (0.0-0.011)
[2016-10-10] MEDS ORDERED: 0.9% Sodium Chloride 1,000 ML IV ONE (12:45)
[2016-10-10] MEDS ORDERED: SERT100T PO (13:57)
[2016-10-10] MEDS ORDERED: INDO25CA PO (13:57)
[2016-10-10] MEDS ORDERED: LISI-571 PO (13:57)
[2016-10-10] MEDS ORDERED: FURO40TA4 PO ×2 (13:57)
[2016-10-10] MEDS ORDERED: Ondansetron 2 mg/mL 2 mL Inj IVPUSH PRN (14:00)
--- NOTE | 2016-10-10 15:04 | PCM.HPMED ---
Subjective Date of Service Oct 10, 2016 Primary Provider: Admitting Physician: Yolanda Champagne MD Primary Care Physician: Harris Landin MD Attending Physician: Yolanda Champagne MD Chief Complaint: increased creatinine History of Present Illness: 61yo F with recent hospitalization with cellulitis on 09/08-, CHF, HTN, HLD, uncontrolled DM presented due to abnormal lab value. During the last hospitalization, patient was noted to have EF of 30-35% which was significant decrease from previous exam in 2011(55-60%), cardiology was consulted. New regimen for heart failure including spironolactone 25 mg, [id number], lasix was changed from 80 qam 40 qpm to 50 bid. Given no s/s of ACS, ADHF, patient was asked to follow up with Dr. Nichole in the clinic. Since patient was discharged, patient was in usual state of health, finished doxycycline course for cellulitis. Patient was seen by 09/22 for follow up. BP noted to be 80/50, so aldactone was held, coreg was decreased from 25mg bid to 12.5mg bid. Lisinopril/lasix was continued on same dose. BMP was obtained on 10/07 which showed worsening of Creatning2.08, bun 114, compared to the last one cr1.01, bun27 on 09/12. Patient was asked to come to the ED for further eval. Patient only had mild decrease of appetite, otherwise feeling okay. denied abdominal pain, nausea, vomiting, sob, chest pain, JAIN. also had chronic intermittent lightheadedness, intermittent diarrhea, which is also chronic, had watery diarrhea since yesterday twice. patient is ambulatory with walker, no changes of walking ability. denied wt gain, leg swelling, orthopnea, PND. pt denied dysuria, decreased urine output, frequency, urgency. ED, VS relatively low 106/62, 69, 20, afebrile. labs showed bun/cr 138/3.04, patient was given 1liter of fluid. Review of Systems: Pertinent positives as noted in history of present illness. All other systems were reviewed and are negative Allergies Coded Allergies: codeine (Verified Allergy, Severe, 12/19/14) duloxetine (Verified Allergy, Intermediate, "not feeling right "., 10/10/16 ) lorazepam (Verified Allergy, Intermediate, "hives", 10/10/16) Penicillins (Verified Allergy, Mild, 12/19/14) BUT TOLERATES AMOX (ACCORDING TO CHART) hydrocodone bitartrate (Verified Allergy, Mild, 12/19/14) hydromorphone (Verified Allergy, Mild, 12/19/14) oxycodone (Verified Allergy, Mild, 12/19/14) Sulfa (Sulfonamide Antibiotics) (Verified Allergy, Unknown, 12/19/14) gabapentin (Verified Adverse Reaction, Intermediate, Nausea,Vomiting, 12/19) Home Medications Discharge Medications Carvedilol (Carvedilol) 25 Mg Tablet 25 MG PO BID (Reported) Clopidogrel (Clopidogrel) 75 Mg Tablet 75 MG PO DAILY (Reported) Doxycycline Hyclate (Doxycycline Hyclate) 100 Mg Tablet 100 MG PO BID Prescribed by: MAYITO CARRILLO DO Fluticasone Propionate (Flovent HFA 110 mcg) 12 Gm Aer.w.adap 1 PUFF IH BID ( Reported) Furosemide (Furosemide) 40 Mg Tablet 40 MG PO BID Prescribed by: MAYITO CARRILLO DO Indomethacin (Indomethacin) 25 Mg Capsule 25 MG PO TID Prescribed by: MAYITO CARRILLO DO Insulin Aspart (NovoLOG U100 Insulin Vial) 100 U/Ml U 20 UNIT SUBQ TIDWM ( Reported) Lisinopril (Lisinopril) 5 Mg Tablet 10 MG PO DAILY Prescribed by: MAYITO CARRILLO DO NPH, Human Insulin Isophane (Novolin-N U100 Insulin Vial) 100 Unit/1 Ml Vial 40 UNIT SUBQ BID (Reported) Potassium Chloride ER (Klor-Con M10) 10 Meq Tablet 20 MEQ PO DAILY (Reported) Simvastatin (Simvastatin) 40 Mg Tablet 40 MG PO HS (Reported) Spironolactone (Aldactone) 25 Mg Tablet 25 MG PO DAILY Prescribed by: MAYITO CARRILLO DO Topiramate (Topamax) 50 Mg Tablet 50 MG PO BID (Reported) PMH Past Medical History 1. Diabetes mellitus type 2, insulin using a. Diabetic neuropathy and retinopathy. b. Peripheral neuropathy. c. Suspected nephropathy. 2. Congestive heart failure, systolic dysfunction. TTE 316 showed LV dysfunction, EF 30-35%, LV borderline dilated. Left ventricular wall thickness is mildly increased. There is moderate global hypokinesis of the left ventricle. 3. History of previous CVA in November 24 which showed subacute lacunar infarct of the left caudate body in the left camejo radiata. 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 She has carotids which showed less than 50% bilateral stenosis of the internal carotids. 4. Depression. 5. Gout. 6. Hyperlipidemia. 7. Hypertension. 8. Sleep apnea. Patient now wearing CPAP at night. 9. Obesity. 10. History of osteoarthritis. 11. Fibromyalgia Neuropathy Surgical History 1. Total abdominal hysterectomy and bilateral salpingo-oophorectomy. 2. Cholecystectomy. 3. Heart catheterization procedure. 4. Tonsillectomy. 5. Left thumb debridement due to Staph infection. Family History Mother has COPD requiring oxygen Father " from natural causes" Daughter "has a kidney problem" Social History Hx Alcohol Use: No Hx Substance Use: No Hx Tobacco Use: No Smoking Status: Never Smoker Living Arrangement: with Family Social History Hx Alcohol Use: No Hx Substance Use: No Hx Tobacco Use: No Smoking Status: Never Smoker Exam Vital Signs Vital Sign - Last Date Time Temp Pulse Resp B/P Pulse Ox O2 Delivery O2 Flow Rate FiO2 10/10/16 10:51 62 16 97/54 100 Room Air 10/10/16 10:26 36.1 Exam NAD, comfortably laying down on the bed no JVD, MMM, no LAD RRR, nl s1, s2 no mrg CTAB, no w,c S,ND,NT,normoactive BS+ warm, trace edema, pulses 2/2 Lab and Diagnostics Result Diagram: 10/10/16 1054 10/10/16 1054 Assessment & Plan 61yo F with recent hospitalization with cellulitis on 09/08-, CHF, HTN, HLD, uncontrolled DM presented due to significantly decreased renal functions. acute, active MELVA, POA, likely prerenal vs ATN, med induced: combination of newly started ACEI , NSAID, aldactone, lasix, s/g1wfetg NS in ED. -hold off all renal toxins now, monitor i/o closely, daily wt, -trends cr, bun, -likely consult Nephrology if renal gets worse -renal US, urine Na, BUN for FEurea -monitor for uremic complications, troponemia, POA, similar to the level from last hospitalization, likely in the setting of MELVA, no more trending requires chronic CHF, POA, seems euvolemic clinically. recent TTE showed EF of 30-35% significant decrease from previous exam -given chronically low BP with coreg, decreased coreg to 6.25 bid, hold if SBP< 100, HR<60 -would avoid ACEI, Aldactone, lasix for now chronic, stable recent cellulitis of LLE, resolved HLD, continue statin Uncontrolled diabetes mellitus type II insulin using, as1c 8.0 from last hospitalization, Novolin was decreased to 30 bid, novolog 10 qac on 09/22 by -will continue lantus 30 qhs, lispro SS for now, adjust based on fasting sugar presumed gout from last hospitalization pt was given colchcine, indomethacine, currently asymptomatic, VTE Prophylaxis: HSQ GI prophylaxis: Not indicated dispo:Patient will be admitted with inpatient status with expectation of inpatient therapy for more than 2 midnights diet:renal, cardiac, diabetic dvt ppx:HSQ Full code per POLST Time spent 65min Yolanda Champagne MD Oct 10, 2016 14:04
--- NOTE | 2016-10-10 15:17 | NUR ---
sleep apnea screen patient screens positive for sleep apnea and has a history of sleep apnea. patient states "i had a test and I have it but my machine broke years ago so I haven't had a machine in years". problem added to the care plan and primary RN Fe [place] notified.
[2016-10-10 15:31] LABS: APPEARANCE,URINE SLIGHTLY CLOUDY (CLEAR,HAZY); COLOR,URINE STRAW (YELLOW); OCCULT BLOOD,URINE NEGATIVE (NEGATIVE); PH,URINE 5.5 (5.0-8.0); UROBILINOGEN,URINE NORMAL (NORMAL)
[2016-10-10] MEDS: 0.9% Sodium Chloride 1,000 ML IV SCH (16:26)
--- NOTE | 2016-10-10 16:52 | NUR ---
Admit: Patient arrived to [facility] [place] [facility] @ approx 1530 via stretcher. Ambulated to bed. Alert & oriented. Denies pain, shortness of breath. States she feels "a little" dizzy. Ortho's obtained and charted. Bladder scan per MD request is 106mls. Oriented to room and call light system. Bed in low and locked position, bed rails up x2, non-skid socks on for safety. Family @ bedside. Discussed with patient to call for assistance to BR. Verbalized agreement. Call light within reach.
--- NOTE | 2016-10-10 18:14 | PCM.CHPMED ---
Subjective Date of Service: Oct 10, 2016 Provider requesting consult: Yolanda Champagne MD Primary Physician: Admitting Physician: Yolanda Champagne MD Primary Care Physician: Harris Landin MD Attending Physician: Yolanda Champagne MD Admit Status: From the Emergency Department Chief Complaint: Chief Complaint: Dysuria History of Present Illness: 61-year-old female past medical history remarkable for diabetes mellitus, systolic congestive heart failure, gout presents from home due to worsening kidney function found by her primary care physician Dr. Landin. The patient has a home health nurse who comes to draw labs and the patient was noted to have an worsening creatinine clearance. The patient states that she feels more lethargic and somnolent than normal. The patient also describes some dysuria with the pain not described near her vagina but in her lower back and nonradiating. The patient denies any blood in her urine but does state that she may have some urinary urgency. The patient denies any history of kidney stones. The patient has a prescription for indomethacin but denies taking any since her last gout attack at her hospitalization last month. The patient has not taken any NSAIDs including ibuprofen Advil or Aleve as she knows this is bad for her "heart ". The patient was hospitalized at [facility] last month for CHF exacerbation and gout attack which was initially thought to be a possible cellulitis. The patient has been taking her furosemide as prescribed after her last admission. She denies dry throat or increased thirst. Review of Systems: A comprehensive review of systems was obtained and all are negative except for what is included in the history of present illness PMH Past Medical History Diabetes mellitus type II Systolic Congestive heart failure CVA reported in 2006 Depression Gout Hyperlipidemia Hypertension Sleep apnea Obesity Osteoarthritis Fibromyalgia Diabetic neuropathy Patient denies any history of diabetic nephropathy or retinopathy Bedside Blood Glucose: 115 Surgical History Total abdominal hysterectomy and bilateral salpingo-oophorectomy Cholecystectomy Tonsillectomy Left thumb debridement due to staph infection Heart catheterization Home Medications Carvedilol Clopidogrel Furosemide 40 mg in the morning and 20 mg in the afternoon NovoLog 10 units 3 times a day with meals Lisinopril 5 mg daily NPH insulin 30 units subcutaneous twice a day Potassium chloride 20 mg daily Sertraline 100 mg daily Simvastatin 40 mg at night Topiramate 50 mg twice a day Indomethacin 25 mg 3 times a day when necessary she denies taking this since her last hospitalization Allergies: Coded Allergies: codeine (Verified Allergy, Severe, 12/19/14) duloxetine (Verified Allergy, Intermediate, "not feeling right "., 10/10/16 ) lorazepam (Verified Allergy, Intermediate, "hives", 10/10/16) Penicillins (Verified Allergy, Mild, 12/19/14) BUT TOLERATES AMOX (ACCORDING TO CHART) hydrocodone bitartrate (Verified Allergy, Mild, 12/19/14) hydromorphone (Verified Allergy, Mild, 12/19/14) oxycodone (Verified Allergy, Mild, 12/19/14) Sulfa (Sulfonamide Antibiotics) (Verified Allergy, Unknown, 12/19/14) gabapentin (Verified Adverse Reaction, Intermediate, Nausea,Vomiting, 12/19) Family History Family History Father had heart disease in his 40s but in a car wreck Mother has COPD Social History Hx Alcohol Use: NoHx Substance Use: NoHx Tobacco Use: No Smoking Status: Never Smoker Exam Vital Signs Vital Sign - Last Date Time Temp Pulse Resp B/P Pulse Ox O2 Delivery O2 Flow Rate FiO2 10/10/16 16:22 67 10/10/16 16:17 93/60 10/10/16 16:16 36.6 18 99 Room Air Additional Information: Gen.: Alert and cooperative Obese elderly female appearing older than her stated age lying in no acute distress in bed Eyes: Pupils equal round reactive to light, anicteric sclera, noninjected conjunctiva HENT: Normocephalic atraumatic, hirsutism on chin, dry mucous membranes without central cyanosis Neck: Supple, no JVD, no lymphadenopathy, decreased turgor Cardiovascular: Regular rate and rhythm, no murmurs rubs or gallops noted Lungs: Clear to auscultation bilaterally without wheezing rales or rhonchi Abdomen: NABS, vertical laparotomy scar, subcutaneous nodule noted in the right lower quadrant with tenderness to palpation, no organomegaly noted Extremities: Pulses intact bilaterally at the radial and dorsalis pedis, no cyanosis clubbing or edema noted Skin: Warm and dry, decreased skin turgor throughout Neuro: No focal neurologic deficits noted able to move all extremities Psych: Normal mood and affect Lab and Diagnostics Result Diagram: 10/10/16 1054 10/10/16 1054 Assessment & Plan Assessment 61-year-old female past medical history remarkable for diabetes mellitus, systolic congestive heart failure, gout presents from home due to worsening kidney function found by her primary care physician Dr. Landin. 1. Acute kidney injury - No history of chronic kidney disease, baseline creatinine less than 1 at admission last month - Likely due to prerenal causes including dehydration and overdiuresis given physical exam findings and low blood pressure - Rule out postrenal problems including obstruction, renal ultrasound ordered to ED, bladder scan performed by nursing shows 100 mL's - Fractional excretion of urea ordered given diuretic use and currently pending - fractional excretion of sodium also order calculated at 2.9% consistent with intrinsic however must evaluate fractional excretion of urea given concomitant diuretic use - 1 L normal saline given in the ED, patient remains mildly orthostatic after 1 L - Continue normal saline 100 mL's per hour - Hold diuretics - Avoid nephrotoxic insults including Derrick inhibitors or ARBS, NSAIDs, contrast studies - Intrarenal causes like ATN possible due to prolonged dehydration, acute interstitial nephritis less likely given no indomethacin in 1 month and no new drugs otherwise noted 2. Anion gap metabolic acidosis - Anion gap 20, bicarbonate 17 - Possibly due to renal failure described above - Lactic acid ordered - UA ordered for ketones - Patient is likely not at risk for methanol/ethylene glycol ingestion given no history of alcohol use, no history of significant aspirin or oxoproline ingestion 3. Urinary tract infection - History reveals dysuria with increased urinary urgency - UA shows pyuria - Ceftriaxone 1 g every 24 4. Hyperphosphatemia - Mild 5.4 - Monitor Patient was seen and examined. Agreed with Dr. Meier' assessment and plan as outlined. Thank you for the consultation. Problems: Stas Meier DO Oct 10, 2016 18:14 Chinmay Langford MD Oct 11, 2016 12:41
[2016-10-10] MEDS: cefTRIAXone Inj 1,000 MG in Dextrose 5% Minibag Plus 50 ML IV SCH (18:32)
--- NOTE | 2016-10-10 18:36 | DRSVH ---
PROCEDURE: US RETROPERITONEAL SONOGRAM ([id number]) INDICATIONS: 61 year-old female with severe acute kidney injury. TECHNIQUE: Real-time scanning was performed of the kidneys and bladder, with image documentation. COMPARISON: None. FINDINGS: Kidneys: Kidneys are normal in size. Right kidney measures 10.2 cm long; left kidney measures 10.5 cm long. Right renal cortical thickness is 1.1 cm; left renal cortical thickness is 1.8 cm. Renal c ortical echotexture is normal. No hydronephrosis or nephrolithiasis. No suspicious solid mass lesio ns. Bladder: Bladder is incompletely distended at the time of scan, and therefore not well evaluated. No ureteral jets are noted with color Doppler interrogation. (Of note, ureteral jets may not be detecta ble in up to 25% of cases due to insufficient differences in specific gravity between ureteral and bl adder urine). Miscellaneous: No free pelvic fluid. IMPRESSION: A post-renal cause is not identified for acute renal insufficiency. Dictated by: Eugene Rangel M.D. on 10/10/2016 at 18:33 Approved by: Eugene Rangel M.D. on 10/10/2016 at 18:35
[2016-10-10] MEDS: Heparin 5,000 Unit/mL Inj SUBQ SCH (23:11)
[2016-10-11] VITALS (7 sets, daily range): BP systolic 92–134; BP diastolic 53–80; PULSE 63–71; RESP 18–20; O2SAT 95–99
[2016-10-11] MEDS: 0.9% Sodium Chloride 1,000 ML IV SCH ×2 (00:04→06:42)
[2016-10-11 06:11] LABS: BASOPHILS % (AUTO) 0.4 % (0-3); EOSINOPHILS % (AUTO) 2.8 % (0-5); MONOCYTES % (AUTO) 9.2 % (4-12); Mean Corpuscular Hemoglobin 26.2 pg (27.0-35.0); Mean Corpuscular Volume 85.3 fL (81-100); NEUTROPHILS % (AUTO) 60.2 % (40-74); Platelet Count 104 bil/L (150-400)
--- NOTE | 2016-10-11 06:36 | NUR ---
Activity Pt remained in bed for the shift except when up to bedside commode. Pt uses call light appropriately to ask for SBA to bedside commode. Appetite poor, encouraged pt to eat small bites throughout the evening. stayed with pt for the night. Left room with call light at bedside.
[2016-10-11 06:51] LABS: Magnesium 2.3 mg/dL (1.6-2.6); Phosphorus 4.1 mg/dL (2.5-4.9)
[2016-10-11] MEDS: Heparin 5,000 Unit/mL Inj SUBQ SCH ×2 (09:33→21:02)
[2016-10-11] MEDS ORDERED: Glucose 40% Oral Gel 15 Gm Tube PO PRN (10:05)
[2016-10-11] MEDS ORDERED: Phenazopyridine 97.5 mg Tablet PO PRN (10:05)
--- NOTE | 2016-10-11 11:29 | PCM.PNMED ---
Subjective Date of Service Oct 11, 2016 Subjective Patient remained stable denies any complaints IVF started per renal, Cr greatly improved. Exam Vital Signs Vital Sign - Last Date Time Temp Pulse Resp B/P Pulse Ox O2 Delivery O2 Flow Rate FiO2 10/11/16 10:35 64 10/11/16 09:57 36.6 18 118/72 96 Room Air Intake and Output 10/10/16 10/10/16 10/11/16 Cumulative From/Thru 15:00 23:00 07:00 10/10/16 10:26 - 10/11/16 06:19 Intake Total 2083 ml 2083 ml Output Total 800 ml 800 ml Balance 1283 ml 1283 ml Intake Oral 400 ml 400 ml IV Total 1683 ml 1683 ml Output Urine Total 800 ml 800 ml # Bowel Movements 0 0 Exam NAD, comfortably laying down on the bed no JVD, MMM, no LAD RRR, nl s1, s2 no mrg CTAB, no w,c S,ND,NT,normoactive BS+ warm, no edema, pulses 2/2 IVs and Medications Medications Reviewed: Medications were reviewed in detail Lab and Diagnostics Result Diagram: 10/11/1660210/11/16602 Assessment & Plan 61yo F with recent hospitalization with cellulitis on , CHF, HTN, HLD, uncontrolled DM presented due to significantly decreased renal functions. acute, active MELVA, POA, likely prerenal FEurea 13.4%<35, med induced: combination of newly started ACEI, NSAID, aldactone, lasix, [id number] NS in ED. Renal US normal size kidney, no stones. -greatly improved with IVF, still has BUN 100s -appreciate Nephrology input, continue IVF -hold off all renal toxins now, monitor i/o closely, daily wt, -trends cr, bun, urine Na, BUN for FEurea -monitor for uremic complications, troponemia, POA, similar to the level from last hospitalization, likely in the setting of MELVA, no more trending requires chronic CHF, POA, seems euvolemic clinically. recent TTE showed EF of 30-35% significant decrease from previous exam -given chronically low BP with coreg, decreased coreg to3.125 bid, hold if SBP< 100, HR<60 -would avoid ACEI, Aldactone, lasix for now chronic, stable recent cellulitis of LLE, resolved HLD, continue statin Uncontrolled diabetes mellitus type II insulin using, as1c 8.0 from last hospitalization, Novolin was decreased to 30 bid, novolog 10 qac on 09/22 by -will start with lantus 10 qd, lispro SS for now, adjust based on fasting sugar presumed gout from last hospitalization pt was given colchcine, indomethacine, currently asymptomatic, VTE Prophylaxis: HSQ GI prophylaxis: Not indicated dispoL 2-3more days, home diet:renal, cardiac, diabetic dvt ppx:HSQ Full code per POLST VTE Mechanical Devices: Intermittant Pneumatic CD Time spent 35 minutes Yolanda Champagne MD Oct 11, 2016 11:29
[2016-10-11] MEDS ORDERED: Insulin GLARgine 100 Unit/mL Syringe SUBQ ONE (11:30)
[2016-10-11] MEDS ORDERED: Insulin LISPRO 300 Unit/3 mL Inj SUBQ SCH (12:00)
--- NOTE | 2016-10-11 12:34 | NUR ---
Social Work Note - Initial Assessment: D/A: See Initial Assessment. The Pt is a 61 y/o female that was admitted for renal failure. Readmission Risk Score 5. The Pt's PCP is MD Harris Landin and her primary insurance is Medicare with a [employer] supplement. EMR reviewed. OTONIEL met with the Pt and the Pt's to explain role and discuss discharge planning. OTONIEL telephone number written on [employer]. The Pt lives independently with her family in [place]. The family has stairs into the home, no concerns reported. The Pt uses a FWW and has no HH/SNF history. Nephrology involved. The Pt denies any needs at this time, OTONIEL following for discharge needs. P: The Pt is not medically stable for discharge, likely to discharge in 2-3 days as per MD note. The Pt denies any needs at this time, OTONIEL following for discharge needs. GARRET Irizarry Fund Director Addendum: 10/11/16 at 1239 by HAY ERNST Advanced Directive discussed, Pt denies the need for paperwork at this time. GARRET Irizarry Fund Director Addendum: 10/11/16 at 1325 by HAY ERNST Amended: Links added. Addendum: 10/12/16 at 1657 by CHASITY ERNST OTONIEL has reviewed note. Chasity Hodges,GARRET
[2016-10-11] MEDS: Insulin LISPRO Medium-Dose Scale SUBQ SCH ×3 (13:09→21:10)
--- NOTE | 2016-10-11 14:21 | PCM.PNNEPH ---
Subjective Date of Service Oct 11, 2016 Subjective Patient continues to have pain on urination. She currently has some nausea as well. She denies blood in her urine or worsening with difficulty emptying her bladder. Exam Vital Signs Vital Sign - Last Date Time Temp Pulse Resp B/P Pulse Ox O2 Delivery O2 Flow Rate FiO2 10/11/16 10:35 64 10/11/16 09:57 36.6 18 118/72 96 Room Air Intake and Output 10/10/16 10/10/16 10/11/16 Cumulative From/Thru 15:00 23:00 07:00 10/10/16 10:26 - 10/11/16 06:19 Intake Total 2083 ml 2083 ml Output Total 800 ml 800 ml Balance 1283 ml 1283 ml Intake Oral 400 ml 400 ml IV Total 1683 ml 1683 ml Output Urine Total 800 ml 800 ml # Bowel Movements 0 0 Exam Gen.: Alert and cooperative Obese elderly female appearing older than her stated age lying in no acute distress in bed Eyes: Pupils equal round reactive to light, anicteric sclera, noninjected conjunctiva HENT: Normocephalic atraumatic, hirsutism on chin, improving moist mucous membranes without central cyanosis Neck: Supple, no JVD, no lymphadenopathy, decreased turgor Cardiovascular: Regular rate and rhythm, no murmurs rubs or gallops noted Lungs: Clear to auscultation bilaterally without wheezing rales or rhonchi Abdomen: NABS, vertical laparotomy scar, subcutaneous nodule noted in the right lower quadrant with tenderness to palpation, no organomegaly noted Extremities: Pulses intact bilaterally at the radial and dorsalis pedis, no cyanosis clubbing or edema noted Skin: Warm and dry, decreased skin turgor throughout Neuro: No focal neurologic deficits noted able to move all extremities Psych: Normal mood and affect Lab and Diagnostics Result Diagram: 10/11/16 0603 10/11/16 0603 Plan Impression 61-year-old female past medical history remarkable for diabetes mellitus, systolic congestive heart failure, gout presents from home due to worsening kidney function found by her primary care physician Dr. Landin. 1. Acute kidney injury 2. Anion gap metabolic acidosis 3. Urinary tract infection 4. Hyperphosphatemia Plan: 1. Acute kidney injury - No history of chronic kidney disease, baseline creatinine less than 1 at admission last month - Likely due to prerenal causes including dehydration and overdiuresis given physical exam findings and low blood pressure - Ruled out postrenal problems with renal US, bladder scan performed by nursing shows 100 mL's - Fractional excretion of urea approximately 17.3% consistent with pre-renal MELVA likely dehydration and overdiuresis - fractional excretion of sodium also order calculated at 2.9% consistent with intrinsic however must evaluate fractional excretion of urea given concomitant diuretic use - Continue half normal saline 100 mL's per hour given mild bump in sodium - Hold diuretics - Avoid nephrotoxic insults including Derrick inhibitors or ARBS, NSAIDs, contrast studies - Intrarenal causes like ATN possible due to prolonged dehydration also possible , acute interstitial nephritis less likely given no indomethacin in 1 month and no new drugs otherwise noted 2. Anion gap metabolic acidosis - Anion gap 20, bicarbonate 17 at admission with delta delta > 1 indicating likely mixed AG and non AG metabolic acidosis - Anion gap improved to 16 on 10/11 with small drop in bicarb - Possibly due to renal failure described above - UA negative for ketones, infection makes lactic acid likely cause - Patient is likely not at risk for methanol/ethylene glycol ingestion given no history of alcohol use, no history of significant aspirin or oxoproline ingestion 3. Urinary tract infection - History reveals dysuria with increased urinary urgency - UA shows pyuria - Culture shows mixed aislinn but given patients symptoms continue to treat for 3 days minimum - Ceftriaxone 1 g every 24 4. Hyperphosphatemia - Mild 5.4 - Monitor Stas Meier DO Oct 11, 2016 14:21
[2016-10-11] MEDS: cefTRIAXone Inj 1,000 MG in Dextrose 5% Minibag Plus 50 ML IV SCH (17:39)
--- NOTE | 2016-10-11 19:31 | NUR ---
Ambulation/ADLs Pt uses call light to ask for assistance. 1P assist to get out of bed. Pt weak but able to bear weight, reports being stiff and having some nerve pain from fibromyalgia. Slow transfer to BS. Pt requests assistance for favio-care. No visible skin issues.
[2016-10-12] VITALS (8 sets, daily range): BP systolic 114–135; BP diastolic 65–75; PULSE 63–81; RESP 18; O2SAT 95–98
[2016-10-12 06:13] LABS: BASOPHILS % (AUTO) 0.4 % (0-3); EOSINOPHILS % (AUTO) 3.1 % (0-5); MONOCYTES % (AUTO) 10.2 % (4-12); Mean Corpuscular Hemoglobin 25.7 pg (27.0-35.0); Mean Corpuscular Volume 85.6 fL (81-100); NEUTROPHILS % (AUTO) 66.5 % (40-74); Platelet Count 112 bil/L (150-400)
[2016-10-12 06:34] LABS: Magnesium 1.9 mg/dL (1.6-2.6); Phosphorus 2.6 mg/dL (2.5-4.9)
[2016-10-12] MEDS: Insulin LISPRO Medium-Dose Scale SUBQ SCH ×4 (08:00→21:24)
[2016-10-12] MEDS: Heparin 5,000 Unit/mL Inj SUBQ SCH ×2 (10:07→21:24)
--- NOTE | 2016-10-12 10:53 | PCM.PNMED ---
Subjective Date of Service Oct 12, 2016 Subjective No overnight event Patient is on IV fluids, creatinine and uremia continued to be improved Patient complaining of poor appetite no nausea or vomiting or abdominal pain Exam Vital Signs Vital Sign - Last Date Time Temp Pulse Resp B/P Pulse Ox O2 Delivery O2 Flow Rate FiO2 10/12/16 09:52 37.0 70 18 127/73 98 Room Air Intake and Output 10/11/16 10/11/16 10/12/16 Cumulative From/Thru 15:00 23:00 07:00 10/10/16 10:26 - 10/12/16 06:30 Intake Total 1703 ml 200 ml 3986 ml Output Total 1450 ml 750 ml 3000 ml Balance 253 ml -550 ml 986 ml Intake Oral 225 ml 200 ml 825 ml IV Total 1478 ml 3161 ml Output Urine Total 1450 ml 750 ml 3000 ml # Bowel Movements 0 0 Exam NAD, comfortably laying down on the bed no JVD, MMM, no LAD RRR, nl s1, s2 no mrg CTAB, no w,c S,ND,NT,normoactive BS+ warm, no edema, pulses 2/2 IVs and Medications Medications Reviewed: Medications were reviewed in detail Lab and Diagnostics Result Diagram: 10/12/16 0550 10/12/16 0550 Assessment & Plan 61yo F with recent hospitalization with cellulitis on 09/08-, CHF, HTN, HLD, uncontrolled DM presented due to significantly decreased renal functions. acute, active MELVA, POA, likely prerenal FEurea 13.4%<35, med induced: combination of newly started ACEI, NSAID, aldactone, lasix, s/b5inndf NS in ED. Renal US normal size kidney, no stones. -greatly improved with IVF, BUN decreased to 50s today -appreciate Nephrology input, continue IVF -hold off all renal toxins now, monitor i/o closely, daily wt, -trends cr, bun, urine Na, BUN for FEurea -monitor for uremic complications, troponemia, POA, similar to the level from last hospitalization, likely in the setting of MELVA, no more trending requires chronic CHF, POA, seems euvolemic clinically. recent TTE showed EF of 30-35% significant decrease from previous exam -given chronically low BP with coreg, decreased coreg to3.125 bid, hold if SBP< 100, HR<60 -would avoid ACEI, Aldactone, lasix for now chronic, stable recent cellulitis of LLE, resolved HLD, continue statin Uncontrolled diabetes mellitus type II insulin using, as1c 8.0 from last hospitalization, Novolin was decreased to 30 bid, novolog 10 qac on 09/22 by -started lantus 10 qd, lispro SS for now, adjust based on fasting sugar presumed gout from last hospitalization pt was given colchcine, indomethacine, currently asymptomatic, VTE Prophylaxis: HSQ GI prophylaxis: Not indicated dispo: 1-2more days, home diet:renal, cardiac, diabetic dvt ppx:HSQ Full code per POLST VTE Mechanical Devices: Intermittant Pneumatic CD Time spent 35min Yolanda Champagne MD Oct 12, 2016 10:53
--- NOTE | 2016-10-12 11:11 | PCM.PNNEPH ---
Subjective Date of Service Oct 12, 2016 Subjective The patient remains slightly nauseated but improved from the day prior. Her right shoulder is bothering her from being helped by staff overnight to get to the bathroom. She denies any further complaints. She understands that her kidneys are improved and from a nephrology standpoint she is ready to go home. She will need to weight herself when she gets home and dose her lasix around her body weight. 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 Exam Vital Signs Vital Sign - Last Date Time Temp Pulse Resp B/P Pulse Ox O2 Delivery O2 Flow Rate FiO2 10/12/16 09:52 37.0 70 18 127/73 98 Room Air Intake and Output 10/11/16 10/11/16 10/12/16 Cumulative From/Thru 15:00 23:00 07:00 10/10/16 10:26 - 10/12/16 06:30 Intake Total 1703 ml 200 ml 3986 ml Output Total 1450 ml 750 ml 3000 ml Balance 253 ml -550 ml 986 ml Intake Oral 225 ml 200 ml 825 ml IV Total 1478 ml 3161 ml Output Urine Total 1450 ml 750 ml 3000 ml # Bowel Movements 0 0 Exam Gen.: Alert and cooperative Obese elderly female appearing older than her stated age lying in no acute distress in bed Eyes: Pupils equal round reactive to light, anicteric sclera, noninjected conjunctiva HENT: Normocephalic atraumatic, hirsutism on chin, improving moist mucous membranes without central cyanosis Neck: Supple, no JVD, no lymphadenopathy, decreased turgor Cardiovascular: Regular rate and rhythm, no murmurs rubs or gallops noted Lungs: Clear to auscultation bilaterally without wheezing rales or rhonchi Abdomen: NABS, vertical laparotomy scar, subcutaneous nodule noted in the right lower quadrant with tenderness to palpation, no organomegaly noted Extremities: Pulses intact bilaterally at the radial and dorsalis pedis, no cyanosis clubbing or edema noted Skin: Warm and dry, decreased skin turgor throughout Neuro: No focal neurologic deficits noted able to move all extremities Psych: Normal mood and affect Lab and Diagnostics Result Diagram: 10/12/16 0550 10/12/16 0550 Plan Impression 61-year-old female past medical history remarkable for diabetes mellitus, systolic congestive heart failure, gout presents from home due to worsening kidney function found by her primary care physician Dr. Landin. 1. Acute kidney injury 2. Anion gap metabolic acidosis 3. Urinary tract infection 4. Hyperphosphatemia Plan: Plan: 1. Acute kidney injury - No history of chronic kidney disease, baseline creatinine less than 1 at admission last month - Likely due to prerenal causes including dehydration and overdiuresis given physical exam findings and low blood pressure - Ruled out postrenal problems with renal US, bladder scan performed by nursing shows 100 mL's - Fractional excretion of urea approximately 17.3% consistent with pre-renal MELVA likely dehydration and overdiuresis - fractional excretion of sodium also order calculated at 2.9% consistent with intrinsic however must evaluate fractional excretion of urea given concomitant diuretic use - Avoid nephrotoxic insults including Derrick inhibitors or ARBS, NSAIDs, contrast studies - Intrarenal causes like ATN possible due to prolonged dehydration also possible , acute interstitial nephritis less likely given no indomethacin in 1 month and no new drugs otherwise noted - Discontinue half normal saline - Hold diuretics, and patient is instructed to begin taking less lasix after discharge starting tomorrow 10/13 only taking Lasix 40mg daily, no longer take a afternoon dose 2. Anion gap metabolic acidosis - Anion gap 20, bicarbonate 17 at admission with delta delta > 1 indicating likely mixed AG and non AG metabolic acidosis - Anion gap improved to 16 on 10/11 - Possibly due to renal failure described above - UA negative for ketones, infection makes lactic acid likely cause - Patient is likely not at risk for methanol/ethylene glycol ingestion given no history of alcohol use, no history of significant aspirin or oxoproline ingestion - Patient will need to be seen by a doctor and for repeat labs within the next 2 weeks, either by her PCP Dr. Landin or by Dr. Langford 3. Urinary tract infection - History reveals dysuria with increased urinary urgency - UA shows pyuria - Culture shows mixed aislinn but given patients symptoms continue to treat for 3 days minimum - Ceftriaxone 1 g every 24, Patient may receive todays (10/12) dose to complete 3 days total either IV or IM and this should treat her UTI 4. Hyperphosphatemia - Mild 5.4 at admission - Monitor Stas Meier DO Oct 12, 2016 11:11
[2016-10-12] MEDS: Insulin GLARgine 100 Unit/mL Syringe SUBQ SCH (13:21)
[2016-10-12] MEDS: cefTRIAXone Inj 1,000 MG in Dextrose 5% Minibag Plus 50 ML IV SCH (16:24)
--- NOTE | 2016-10-12 18:30 | NUR ---
Nausea Patient reporting nausea. Refusing dinner due to upset stomach. Patient given antiemetic with moderate relief.
[2016-10-13 00:35] VITALS: BP 120/72; PULSE 87; RESP 18; O2SAT 92
--- NOTE | 2016-10-13 00:55 | NUR ---
Temp of 38.4 recorded by COMMISSARY ASSISTANT Administered 650mg Tylenol a few minutes later Temp while giving Tylenol 37.2, pt reports no s/s of fever/chills/diaphoresis.
[2016-10-13 05:43] VITALS: BP 109/69; PULSE 91; RESP 18; O2SAT 99
[2016-10-13 05:44] VITALS: PULSE 77
[2016-10-13 06:24] LABS: BASOPHILS % (AUTO) 0.1 % (0-3); EOSINOPHILS % (AUTO) 1.3 % (0-5); MONOCYTES % (AUTO) 13.1 % (4-12); Mean Corpuscular Hemoglobin 26.7 pg (27.0-35.0); Mean Corpuscular Volume 85.2 fL (81-100); NEUTROPHILS % (AUTO) 66.3 % (40-74); Platelet Count 126 bil/L (150-400)
[2016-10-13 06:53] LABS: Magnesium 1.5 mg/dL (1.6-2.6); Phosphorus 2.9 mg/dL (2.5-4.9)
[2016-10-13 08:00] VITALS: PULSE 87
[2016-10-13 08:17] VITALS: BP 123/77; PULSE 91; RESP 16; O2SAT 97
[2016-10-13] MEDS: Insulin LISPRO Medium-Dose Scale SUBQ SCH ×2 (09:46→12:55)
[2016-10-13] MEDS: Heparin 5,000 Unit/mL Inj SUBQ SCH (09:47)
[2016-10-13] MEDS: Insulin GLARgine 100 Unit/mL Syringe SUBQ SCH (09:47)
[2016-10-13] MEDS: cefTRIAXone Inj 2,000 MG in Dextrose 5% Minibag Plus 50 ML IV ONE ×2 (10:03→12:24)
--- NOTE | 2016-10-13 10:57 | NUR ---
Social Work: Readiness for d/c Data: Pt is on day 3 of hospitalization. EMR reviewed. Pt discussed in rounds. MD states pt likely to d/c today. CRUISE CONSULTANT inquired about home IVABX, states these are not needed. No d/c planning needs anticipated. CRUISE CONSULTANT will continue to follow if needs arise. Assessment: Pt who is independent at baseline. Plan: Pt will d/c home via POV when medically stable, possibly today per MD. CRUISE CONSULTANT inquired about home IVABX, states these are not needed. No d/c planning needs anticipated. CRUISE CONSULTANT will continue to follow if needs arise. GARRET Jernigan
[2016-10-13] MEDS ORDERED: CARV6.25 PO (11:30)
--- NOTE | 2016-10-13 11:38 | PCM.DIMED ---
Discharge Instructions Date of Service Oct 13, 2016 Dates of Hospitalization Oct 10, 2016 at 13:56 Discharge Diagnosis Discharge Diagnosis Prerenal MELVA, likely medicine induced Medication Instructions PLEASE STOP TAKING these medicine until you see primary doctor Lasix 40mg in the morning Lasix 20mg in the evening Lisinopril 5mg daily Potassium tablet Indomethacin Coreg(carvedilol) dose was changed to 6.25mg from 12.5mg due to low blood pressure. Dosage will be adjusted by your doctor later. Diet Low fat, Low Sodium, Heart Healthy Activity No restrictions Call your provider Shortness of breath Patient Instructions You were hospitalized with acute kidney injury from medicines. Please note that we stopped some of medicine, which needs to be resumed by your primary doctor in the clinic in one week. If you feel shortness of breath, significant leg swelling before you see your doctor, you can take 1tablet of Lasix daily until you see Follow-up Provider: Harris Landin MD Follow-up with PCP in: 1 week Yolanda Champagne MD Oct 13, 2016 11:38
--- NOTE | 2016-10-13 11:39 | NUR ---
Social Work: Discharge Data: Pt is on day 3 of hospitalization. EMR reviewed. D/C orders are in. No d/c planning needs. SHARK BIOLOGIST will continue to follow if needs arise. Assessment: Pt who is independent at baseline. Plan: Pt will d/c home via POV today. No d/c planning needs. SHARK BIOLOGIST will continue to follow if needs arise. GARRET Jernigan
--- NOTE | 2016-10-13 11:58 | PCM.PNNEPH ---
Subjective Date of Service Oct 13, 2016 Subjective The patient has right shoulder pain which started two nights ago after being helped out of bed the shoulder is painful to touch and pain with poor ROM. The had a fever overnight with chills reported. She states that her dysuria has improved. Exam Vital Signs Vital Sign - Last Date Time Temp Pulse Resp B/P Pulse Ox O2 Delivery O2 Flow Rate FiO2 10/13/16 08:17 36.8 91 16 123/77 97 Room Air Intake and Output 10/12/16 10/12/16 10/13/16 Cumulative From/Thru 15:00 23:00 07:00 10/10/16 10:26 - 10/13/16 05:42 Intake Total 1720 ml 300 ml 6006 ml Output Total 1850 ml 100 ml 4950 ml Balance -130 ml 200 ml 1056 ml Intake Oral 400 ml 300 ml 1525 ml IV Total 1320 ml 4481 ml Output Urine Total 1850 ml 100 ml 4950 ml # Bowel Movements 0 0 Exam Gen.: Alert and cooperative Obese elderly female appearing older than her stated age lying in no acute distress in bed Eyes: Pupils equal round reactive to light, anicteric sclera, noninjected conjunctiva HENT: Normocephalic atraumatic, hirsutism on chin, improving moist mucous membranes without central cyanosis Neck: Supple, no JVD, no lymphadenopathy, decreased turgor Cardiovascular: Regular rate and rhythm, no murmurs rubs or gallops noted Lungs: Clear to auscultation bilaterally without wheezing rales or rhonchi Abdomen: NABS, vertical laparotomy scar, subcutaneous nodule noted in the right lower quadrant with tenderness to palpation, no organomegaly noted Extremities: Pulses intact bilaterally at the radial and dorsalis pedis, no cyanosis clubbing or edema noted, right shoulder is swollen but without notable erythema of fluctuance Skin: Warm and dry, decreased skin turgor throughout Neuro: No focal neurologic deficits noted struggles with moving right shoulder Psych: Normal mood and affect Lab and Diagnostics Result Diagram: 10/13/16 0555 10/13/16 0555 X-Rays, CTs and MRIs right shoulder xray ordered and pending Plan Impression 61-year-old female past medical history remarkable for diabetes mellitus, systolic congestive heart failure, gout presents from home due to worsening kidney function found by her primary care physician Dr. Landin. 1. Acute kidney injury 2. Anion gap metabolic acidosis 3. Urinary tract infection 4. Hyperphosphatemia 5. Right shoulder pain Plan: 1. Acute kidney injury - No history of chronic kidney disease, baseline creatinine less than 1 at admission last month - Likely due to prerenal causes including dehydration and overdiuresis given physical exam findings and low blood pressure - Ruled out postrenal problems with renal US, bladder scan performed by nursing shows 100 mL's - Fractional excretion of urea approximately 17.3% consistent with pre-renal MELVA likely dehydration and overdiuresis - fractional excretion of sodium also order calculated at 2.9% consistent with intrinsic however must evaluate fractional excretion of urea given concomitant diuretic use - Avoid nephrotoxic insults including Derrick inhibitors or ARBS, NSAIDs, contrast studies - Intrarenal causes like ATN possible due to prolonged dehydration also possible , acute interstitial nephritis less likely given no indomethacin in 1 month and no new drugs otherwise noted - Discontinue half normal saline - Hold diuretics, primary team would laura to hold lasix after discharge until patient is seen by PCP Dr. Landin. This is reasonable. The patient is aware to weight herself daily including today after discharge. 2. Anion gap metabolic acidosis - Anion gap 20, bicarbonate 17 at admission with delta delta > 1 indicating likely mixed AG and non AG metabolic acidosis - Anion gap improved to 16 on 10/11 - Possibly due to renal failure described above - UA negative for ketones, infection makes lactic acid likely cause - Patient is likely not at risk for methanol/ethylene glycol ingestion given no history of alcohol use, no history of significant aspirin or oxoproline ingestion - Patient will need to be seen by a doctor and for repeat labs within the next 2 weeks, either by her PCP Dr. Landin or by Dr. Langford 3. Urinary tract infection - History reveals dysuria with increased urinary urgency - UA shows pyuria - Culture shows mixed aislinn but given patients symptoms continue to treat for 3 days minimum - Ceftriaxone 1 g every 24, Patient completed 3 days total and this should treat her UTI 4. Hyperphosphatemia - Mild 5.4 at admission - Monitor 5. Right shoulder pain, not present on admission - right shoulder xray ordered pending read - patient has a history of gout however this is an atypical presentation Stas Meier DO Oct 13, 2016 11:58
--- NOTE | 2016-10-13 12:16 | DRSVH ---
PROCEDURE: X-RAY RIGHT SHOULDER, MINIMUM TWO VIEWS ([id number]) INDICATIONS: difficulty moving arm and shoulder swelling TECHNIQUE: 3 views of the shoulder were acquired. COMPARISON: [facility], , SHOULDER MIN 2VW (RT), 09/28/2012, 16:10. FINDINGS: Bones: No fractures or dislocations. No suspicious bony lesions. Visualized ribs appear intact. M ild joint narrowing with periarticular osteophyte formation. Soft tissues: No suspicious soft tissue calcifications. IMPRESSION: 1. Mild degenerative joint disease in the right acromioclavicular and glenohumeral joints. Dictated by: Jose HELM Interpreted: Hitesh Westbrook MD on 10/13/2016 at 12:13 Transcribed by: SARMAD on 10/13/2016 at 12:15 Approved by: Hitesh Westbrook M.D. on 10/13/2016 at 13:46
--- NOTE | 2016-10-13 16:08 | NUR ---
Discharge Pt. discharged to home in stable condition at 1315. Transported via w/c to vehicle. and daughter present. All belongings, scripts and instructions with pt. No questions or concerns at this time. IV dc'd prior to discharge.
--- NOTE | 2016-10-15 14:44 | PCM.DC.MED ---
Discharge Summary Date of Service Oct 13, 2016 Dates of Hospitalization Date of Hospital Admission Oct 10, 2016 at 13:56 Date of Discharge: Oct 13, 2016 Providers: Admitting Physician: Yolanda Rebollar MD Primary Care Physician: Harris Landin MD Attending Physician: Yolanda Rebollar MD Diagnosis at Time of Discharge Diagnosis at Time of Discharge acute problems, Prerenal MELVA, likely medicine induced persistent troponemia, POA chronic systolic CHF chronic recent cellulitis of LLE HLD Uncontrolled diabetes mellitus type II insulin hx of gout Procedures XRay, CTs & MRIs PROCEDURE: US RETROPERITONEAL SONOGRAM ([id number]) INDICATIONS: 61 year-old female with severe acute kidney injury. TECHNIQUE: Real-time scanning was performed of the kidneys and bladder, with image documentation. COMPARISON: None. FINDINGS: Kidneys: Kidneys are normal in size. Right kidney measures 10.2 cm long; left kidney measures 10.5 cm long. Right renal cortical thickness is 1.1 cm; left renal cortical thickness is 1.8 cm. Renal cortical echotexture is normal. No hydronephrosis or nephrolithiasis. No suspicious solid mass lesions. Bladder: Bladder is incompletely distended at the time of scan, and therefore not well evaluated. No ureteral jets are noted with color Doppler interrogation. (Of note, ureteral jets may not be detectable in up to 25% of cases due to insufficient differences in specific gravity between ureteral and bladder urine). Miscellaneous: No free pelvic fluid. IMPRESSION: A post-renal cause is not identified for acute renal insufficiency. Dictated by: Eugene Rangel M.D. on 10/10/2016 at 18:33 Approved by: Eugene Rangel M.D. on 10/10/2016 at 18:35 PROCEDURE: X-RAY RIGHT SHOULDER, MINIMUM TWO VIEWS ([id number]) INDICATIONS: difficulty moving arm and shoulder swelling TECHNIQUE: 3 views of the shoulder were acquired. COMPARISON: [facility], , SHOULDER MIN 2VW (RT), 09/28/2012, 16: 10. FINDINGS: Bones: No fractures or dislocations. No suspicious bony lesions. Visualized ribs appear intact. Mild joint narrowing with periarticular osteophyte formation. Soft tissues: No suspicious soft tissue calcifications. IMPRESSION: 1. Mild degenerative joint disease in the right acromioclavicular and glenohumeral joints. Dictated by: Jose Vernon [facility] Interpreted: Hitesh Westbrook MD on 10/13/2016 at 12:13 Transcribed by: SARMAD on 10/13/2016 at 12:15 Approved by: Hitesh Westbrook M.D. on 10/13/2016 at 13:46 Brief History HPI obtained on 10/10 61-year-old female past medical history remarkable for diabetes mellitus, systolic congestive heart failure, gout presents from home due to worsening kidney function found by her primary care physician Dr. Landin. The patient has a home health nurse who comes to draw labs and the patient was noted to have an worsening creatinine clearance. The patient states that she feels more lethargic and somnolent than normal. The patient also describes some dysuria with the pain not described near her vagina but in her lower back and nonradiating. The patient denies any blood in her urine but does state that she may have some urinary urgency. The patient denies any history of kidney stones. The patient has a prescription for indomethacin but denies taking any since her last gout attack at her hospitalization last month. The patient has not taken any NSAIDs including ibuprofen Advil or Aleve as she knows this is bad for her "heart ". The patient was hospitalized at [facility] last month for CHF exacerbation and gout attack which was initially thought to be a possible cellulitis. The patient has been taking her furosemide as prescribed after her last admission. She denies dry throat or increased thirst. Hospital Course 61yo F with recent hospitalization with cellulitis on 09/08-, CHF, HTN, HLD, uncontrolled DM presented due to significantly decreased renal functions. acute problems, MELVA, POA, likely prerenal FEurea 13.4%<35, med induced: combination of newly started ACEI, NSAID, aldactone, lasix, [id number] NS in ED. Renal US normal size kidney, no stones. patient was monitored closely, didn't have any uremic complications, renal functions was close to baseline upon discharge. Since pt remained euvolemic, pt was recommended to follow up with PCP and resume diuretics in the clinic. troponemia, POA, similar to the level from last hospitalization, likely in the setting of MELVA, no more trending requires chronic systolic CHF, POA, seems euvolemic clinically. recent TTE showed EF of 30-35% significant decrease from previous exam. patient was continued coreg, held ACEI/aldactone which can be resumed later in the clinic. chronic, stable recent cellulitis of LLE, resolved HLD, continued statin Uncontrolled diabetes mellitus type II insulin using, as1c 8.0 from last hospitalization, Novolin was decreased to 30 bid, novolog 10 qac on 09/22 by , controlled with [id number], lisproSS presumed gout from last hospitalization pt was given colchcine, indomethacine, remained asymptomatic, Exam Vital Signs (Last) Date Time Temp Pulse Resp B/P Pulse Ox O2 Delivery O2 Flow Rate FiO2 10/13/16 08:17 36.8 91 16 123/77 97 Room Air Exam NAD, comfortably laying down on the bed no JVD, MMM, no LAD RRR, nl s1, s2 no mrg CTAB, no w,c S,ND,NT,normoactive BS+ warm, no edema, pulses 2/2 Test 10/10/16 10:54 10/10/16 15:17 10/11/16 06:03 10/13/16 05:55 Troponin T 0.036ug/L (0.0-0.011) Urine Color Straw (YELLOW) Urine Appearance Slightly cloudy Urine pH 5.5 (5.0-8.0) Urine Specific [place] 1.010 (1.003-1.035) Urine Protein Negativemg/dL (NEG,TRACE) Urine Glucose (UA) Negativemg/dL (NEGATIVE) Urine Ketones Negativemg/dL (NEGATIVE) Urine Occult Blood Negative (NEGATIVE) Urine Nitrite Negative (NEGATIVE) Urine Bilirubin Negative (NEGATIVE) Urine Urobilinogen Normalmg/dL (NORMAL) Urine Leukocyte Esterase Moderate (NEGATIVE) Urine RBC 0-2/hpf (0-2) Urine WBC 11-50/hpf (0-5) Urine Epithelial Cells Occasional/hpf (NONE-MOD) Urine Crystals None seen (NONE SEEN) Urine Bacteria Few/hpf (NONE-FEW) Urine Hyaline Casts Occasional/lpf (NONE) Urine Granular Casts None seen (NONE SEEN) Urine Waxy Casts None seen (NONE SEEN) Urine Red Blood Cell Casts None seen (NONE SEEN) Urine White Blood Cell Casts None seen (NONE SEEN) Urine Mucus None seen (None Seen) Urine Trichomonas None seen (NONE SEEN) Urine Yeast None (NONE SEEN) Urinalysis Comment Transitional epi Urine Culture Reflexed Indicated Urine Random Creatinine 52mg/dL (15-278) Urine Random Total Protein 5mg/dL (0-15) Urine Random Sodium 69mEq/L Urine Protein/Creatinine Ratio 0.10 Urine Urea Nitrogen 408mg/dL (Not Estab.) Hemoglobin A1c 7.0% (4.8-5.6) White Blood Count 8.5th/mm3 (3.8-10.1) Red Blood Count 4.54mil/mm3 (3.90-5.20) Hemoglobin 12.1g/dL (12.0-15.6) Hematocrit 38.7% (35.0-46.0) Mean Corpuscular Volume 85.2fL (81-100) Mean Corpuscular Hemoglobin 26.7pg (27.0-35.0) Mean Corpuscular Hemoglobin Concent 31.3% (32.0-37.0) Red Cell Distribution Width 17.2% (12.3-15.4) Platelet Count 126bil/L (150-400) Neutrophils (%) (Auto) 66.3% (40-74) Lymphocytes (%) (Auto) 19.1% (14-46) Monocytes (%) (Auto) 13.1% (4-12) Eosinophils (%) (Auto) 1.3% (0-5) Basophils (%) (Auto) 0.1% (0-3) Sodium Level 143mEq/L (134-144) Potassium Level 4.5mEq/L (3.5-5.2) Chloride Level 109mEq/L (97-108) Carbon Dioxide Level 18mmol/L (18-29) Blood Urea Nitrogen 34mg/dL (8-27) Creatinine 1.14mg/dL (0.57-1.00) Estimat Glomerular Filtration Rate 70mL/min (>59) Glucose Level 178mg/dL (60-99) Calcium Level 9.4mg/dL (8.5-10.1) Phosphorus Level 2.9mg/dL (2.5-4.9) Magnesium Level 1.5mg/dL (1.6-2.6) Total Bilirubin 0.4mg/dL (0.0-1.2) Aspartate Amino Transf (AST/SGOT) 13U/L (0-50) Alanine Aminotransferase (ALT/SGPT) 14U/L (0-32) Alkaline Phosphatase 55U/L (25-165) Total Protein 6.9g/dL (6.4-8.4) Albumin 3.4g/dL (3.4-5.0) Discharge Medications Discharge Medications Carvedilol (Coreg) 6.25 Mg Tablet 6.25 MG PO BID Prescribed by: YOLANDA REBOLLAR MD Clopidogrel (Clopidogrel) 75 Mg Tablet 75 MG PO DAILY (Reported) Insulin Aspart (NovoLOG U100 Insulin Vial) 100 U/Ml U 10 UNIT SUBQ TIDWM ( Reported) NPH, Human Insulin Isophane (Novolin-N U100 Insulin Vial) 100 Unit/1 Ml Vial 30 UNIT SUBQ BID (Reported) Sertraline HCl (Zoloft) 100 Mg Tablet 100 MG PO DAILY (Reported) Simvastatin (Simvastatin) 40 Mg Tablet 40 MG PO HS (Reported) Topiramate (Topamax) 50 Mg Tablet 50 MG PO BID (Reported) Additional med instructions PLEASE STOP TAKING these medicine until you see primary doctor Lasix 40mg in the morning Lasix 20mg in the evening Lisinopril 5mg daily Potassium tablet Indomethacin Coreg(carvedilol) dose was changed to 6.25mg from 12.5mg due to low blood pressure. Dosage will be adjusted by your doctor later. Followup Plan Disposition: home Discharge Diet: Low fat, Low Sodium, Heart Healthy Discharge Activity: No restrictions Patient Instructions You were hospitalized with acute kidney injury from medicines. Please note that we stopped some of medicine, which needs to be resumed by your primary doctor in the clinic in one week. If you feel shortness of breath, significant leg swelling before you see your doctor, you can take 1tablet of Lasix daily until you see Follow-up Provider: Harris Landin MD Follow-up with PCP in: 1 week Time spent 65min Yolanda Rebollar MD Oct 13, 2016 21:30
== END 2016-10-13 13:25 | disposition home or self-care (01) | DRG 683 ==
LOC: SED 10:18 → MPC 13:56
PROVIDERS: ADMIT Internal Medicine; ATTEND Internal Medicine
DX: N17.9 Acute kidney failure, unspecified (principal); I50.22 Chronic systolic (congestive) heart failure; N39.0 Urinary tract infection, site not specified; N14.1 Nephropathy induced by other drugs, medicaments and biological substances; E78.5 Hyperlipidemia, unspecified; I10 Essential (primary) hypertension; Z79.4 Long term (current) use of insulin; Z86.73 Personal history of transient ischemic attack (TIA), and cerebral infarction without residual deficits; M10.9 Gout, unspecified; E11.40 Type 2 diabetes mellitus with diabetic neuropathy, unspecified; E11.65 Type 2 diabetes mellitus with hyperglycemia; M25.511 Pain in right shoulder